=== PATIENT | female | born 1945 | race American Indian/Alaskan Native ===

== ENCOUNTER 2019-03-19 14:56 | Inpatient (IN) | payer BC, MEDICARE ==
[2019-03-19] MEDS ORDERED: ASPIRIN PO ONE (15:02)
[2019-03-19] MEDS: NITROSTAT SL ONE ×3 (15:47→16:04)
[2019-03-19 15:55] LABS: Basophils % (Auto) 0.4 % (0.0-1.8); Eosinophils % (Auto) 0.3 % (0.0-4.3); Hematocrit 43.6 % (30.3-42.9); Hemoglobin 14.2 gm/dl (10.1-14.3); Lymphocytes # (Auto) 1.4 K/mm3 (1.2-5.4); Lymphocytes % (Auto) 13.7 % (13.4-35.0); Mean Corpuscular HGB Conc 33 % (30-34); Mean Corpuscular Volume 95 fl (79-97); Monocytes # (Auto) 0.8 K/mm3 (0.0-0.8); Monocytes % (Auto) 7.6 % (0.0-7.3); Platelet Count 295 K/mm3 (140-440); Red Blood Count 4.59 M/mm3 (3.65-5.03); Red Cell Distribution Width 14.2 % (13.2-15.2)
[2019-03-19] MEDS ORDERED: MORPHINE IV ONE (16:17)
[2019-03-19 16:21] LABS: BUN/Creatinine Ratio 12; Blood Urea Nitrogen 12 mg/dL (7-17); Calcium 10.2 mg/dL (8.4-10.2); Hemolysis Index 38
--- NOTE | 2019-03-19 17:41 | Emergency Department Report ---
ED Chest Pain HPI - General Chief Complaint: Chest Pain Stated Complaint: VOMITTING/CHEST PAIN Time Seen by Provider: 03/19/19 15:26 Source: patient, family Mode of arrival: Wheelchair Limitations: Physical Limitation - History of Present Illness Initial Comments: Mrs. Finch is a 73 yo female with hx of HTN who presents with chest pain and vomiting. Chest pain began 1.5 days ago. CHest pain is located under both breasts and radiates to her back, centrally to epigastric region. 07/05 today. Worsening in severity with vomiting. Take [address] Eliud Callaway NO hx of cardiac dz Takes baby ASA daily. Dose taken this morning [facility] [address], [place] Complaint: chest pain -: Gradual, days(s) (1.5) Onset: during rest Pain Location: left chest, right chest Pain Radiation: back Severity scale (0 -10): 5 Quality: other (difficult to describe) Consistency: constant Improves With: nothing Worsens With: nothing re: nausea, vomting - Related Data Home Medications Medication Instructions Recorded Confirmed Last Taken Aspirin EC [Aspirin Enteric Coated 81 mg PO QDAY 07/19/14 07/20/14 03/19/19 09:00 TAB] Clonidine HCl [Catapres] 0.3 mg PO BID 07/19/14 03/19/19 03/18/19 20:00 Hydralazine HCl [hydrALAZINE] 50 mg PO BID 07/19/14 07/20/14 03/18/19 20:00 Losartan [Cozaar] 100 mg PO DAILY 07/19/14 07/20/14 03/19/19 09:00 amLODIPine [Norvasc] 10 mg PO DAILY 07/19/14 03/19/19 03/19/19 09:00 Allergies Allergy/AdvReac Type Severity Reaction Status Date / Time No Known Allergies Allergy Unverified 07/19/14 14:49 Heart Score - HEART Score History: Highly suspicious EKG: Non-specific Age: > 65 Risk factors: 1-2 risk factors Troponin: < normal limit HEART Score: 6 ED Review of Systems ROS: Stated complaint: VOMITTING/CHEST PAIN Other details as noted in HPI Comment: All other systems reviewed and negative Constitutional: denies: fever, malaise Cardiovascular: chest pain Gastrointestinal: nausea, vomiting ED Past Medical Hx - Past Medical History Previous Medical History?: Yes Hx Hypertension: Yes (FOR 5 YRS, DR. 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 - Medications Home Medications: Home Medications Medication Instructions Recorded Confirmed Last Taken Type Aspirin EC [Aspirin Enteric Coated 81 mg PO QDAY 07/19/14 07/20/14 03/19/19 09:00 History TAB] Clonidine HCl [Catapres] 0.3 mg PO BID 07/19/14 03/19/19 03/18/19 20:00 History Hydralazine HCl [hydrALAZINE] 50 mg PO BID 07/19/14 07/20/14 03/18/19 20:00 History Losartan [Cozaar] 100 mg PO DAILY 07/19/14 07/20/14 03/19/19 09:00 History amLODIPine [Norvasc] 10 mg PO DAILY 07/19/14 03/19/19 03/19/19 09:00 History ED Physical Exam - General Limitations: Physical Limitation General appearance: alert, other (appears uncomfortable) - Head Head exam: Present: atraumatic, normocephalic - Eye Eye exam: Present: normal appearance - ENT ENT exam: Present: mucous membranes moist - Neck Neck exam: Present: normal inspection, full ROM - Respiratory Respiratory exam: Present: normal lung sounds bilaterally. Absent: respiratory distress, wheezes, rales, rhonchi - Cardiovascular Cardiovascular Exam: Present: regular rate, normal rhythm, normal heart sounds, other (equal radial pulses). Absent: systolic murmur, diastolic murmur, rubs, gallop - GI/Abdominal GI/Abdominal exam: Present: soft, normal bowel sounds. Absent: distended, tenderness, guarding, rebound - Extremities Exam Extremities exam: Present: normal inspection - Back Exam Back exam: Present: normal inspection - Neurological Exam Neurological exam: Present: alert, oriented X3 - Psychiatric Psychiatric exam: Present: normal affect, normal mood - Skin Skin exam: Present: warm, dry, intact, normal color. Absent: rash ED Course Vital Signs 03/19/19 03/19/19 03/19/19 15:04 15:47 15:52 Temperature 98.2 F Pulse Rate 110 H 86 100 H Respiratory 20 Rate Blood Pressure 159/75 157/71 138/74 O2 Sat by Pulse 95 Oximetry 03/19/19 03/19/19 16:04 16:38 Temperature Pulse Rate 94 H Respiratory 18 Rate Blood Pressure 129/63 O2 Sat by Pulse Oximetry ED Medical Decision Making - Lab Data Result diagrams: 03/19/19 15:40 03/19/19 15:40 Laboratory Results - last 24 hr 03/19/19 03/19/19 15:40 15:40 WBC 9.9 RBC 4.59 Hgb 14.2 Hct 43.6 H MCV 95 MCH 31 MCHC 33 RDW 14.2 Plt Count 295 Lymph % (Auto) 13.7 [place] % (Auto) 7.6 H Eos % (Auto) 0.3 Baso % (Auto) 0.4 Lymph # 1.4 [place] # 0.8 Eos # 0.0 Baso # 0.0 Seg Neutrophils % 78.0 H Seg Neutrophils # 7.7 Sodium 138 Potassium 3.4 L Chloride 101.8 Carbon Dioxide 19 L Anion Gap 21 BUN 12 Creatinine 1.0 Estimated GFR > 60 BUN/Creatinine Ratio 12 Glucose 152 H Calcium 10.2 Troponin T < 0.010 - EKG Data 03/19/19 17:39 EKG obtained 1515 NSR rate 85 bpm nl axis prolonged QT diffuse T wave flattening, inverted T wave anterolateral leads - Radiology Data Radiology results: report reviewed, image reviewed interpreted by me: AP portable chest: poor inspiratory effort, normal heart size tortuous aorta - Medical Decision Making Mrs. Finch presents with chest pain radiating to back concerning for ACS. Symptoms improved with nitroglycerin. Equal blood pressures in both arms. Equal radial pulses. Admitted to hospitalist service in fair condition. Heart Score 6 Critical care attestation.: If time is entered above; I have spent that time in minutes in the direct care of this critically ill patient, excluding procedure time. ED Disposition Clinical Impression: Acute coronary syndrome Disposition: OP ADMIT IP TO THIS HOSP Is pt being admited?: Yes Does the pt Need Aspirin: No Condition: Stable
--- NOTE | 2019-03-19 18:07 | XRay Report ---
PROCEDURE: XR CHEST 1V AP TECHNIQUE: Chest radiograph single view. HISTORY: Chest Pain COMPARISONS: None . FINDINGS: Heart: Normal. Mediastinum/Vessels: Mild calcification of aorta is seen which is unfolded, likely age-related.. Lungs/Pleural space: Normal. Bony thorax: No acute osseous abnormality. Life support devices: None. IMPRESSION: No acute cardiopulmonary abnormality. This document is electronically signed by Roselia Agee MD., Mar 19 2019 06:05:26 PM ET
--- NOTE | 2019-03-19 20:21 | History and Physical Report ---
History of Present Illness Date of examination: 03/19/19 Date of admission: 03/19/19 16:59 Chief complaint: Chest pain for 1 day History of present illness: 73 yo female with hx of HTN who presents with chest pain and vomiting. Chest pain began 1.5 days ago. CHest pain is located under both breasts and radiates to her back, centrally to epigastric region. 9/10 today. Worsening in severity with vomiting. on antihypertensives.No exacerbating or relieving factors. No sob. Past Medical History Previous Medical History?: Yes HTN Yes (FOR [address] YRS, DR. 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 - Medications Home Medications: Home Medications Medication Instructions Recorded Confirmed Last Taken Type Aspirin EC [Aspirin Enteric Coated 81 mg PO QDAY 07/19/14 07/20/14 03/19/19 09:00 History TAB] Clonidine HCl [Catapres] 0.3 mg PO BID 07/19/14 03/19/19 03/18/19 20:00 History Hydralazine HCl [hydrALAZINE] 50 mg PO BID 07/19/14 07/20/14 03/18/19 20:00 History Losartan [Cozaar] 100 mg PO DAILY 07/19/14 07/20/14 03/19/19 09:00 History amLODIPine [Norvasc] 10 mg PO DAILY 07/19/14 03/19/19 03/19/19 09:00 History Review of Systems ROS: Stated complaint: VOMITTING/CHEST PAIN Other details as noted in HPI Comment: All other systems reviewed and negative Constitutional: denies: fever, malaise Cardiovascular: chest pain Gastrointestinal: nausea, vomiting Medications and Allergies Allergies Allergy/AdvReac Type Severity Reaction Status Date / Time No Known Allergies Allergy Unverified 07/19/14 14:49 Home Medications Medication Instructions Recorded Confirmed Last Taken Type Aspirin EC [Aspirin Enteric Coated 81 mg PO QDAY 07/19/14 03/19/19 03/19/19 09:00 History TAB] Clonidine HCl [Catapres] 0.3 mg PO BID 07/19/14 03/19/19 03/18/19 20:00 History Hydralazine HCl [hydrALAZINE] 50 mg PO BID 07/19/14 03/19/19 03/18/19 20:00 History Losartan [Cozaar] 100 mg PO DAILY 07/19/14 03/19/19 03/19/19 09:00 History amLODIPine [Norvasc] 10 mg PO DAILY 07/19/14 03/19/19 03/19/19 09:00 History Exam - Constitutional Vitals: Temp Pulse Resp BP Pulse Ox 98.4 F 74 18 152/77 100 03/19/19 18:53 03/19/19 18:53 03/19/19 18:53 03/19/19 18:53 03/19/19 18:53 General appearance: Present: no acute distress, well-nourished - EENT Eyes: Present: PERRL ENT: hearing intact, clear oral mucosa - Neck Neck: Present: supple, normal ROM - Respiratory Respiratory effort: normal Respiratory: bilateral: CTA - Cardiovascular Heart Sounds: Present: S1 & S2. Absent: rub, click - Extremities Extremities: pulses symmetrical, No edema Peripheral Pulses: within normal limits - Abdominal General gastrointestinal: Present: soft, non-tender, non-distended, normal bowel sounds Female genitourinary: Present: normal - Integumentary Integumentary: Present: clear, warm, dry - Musculoskeletal Musculoskeletal: gait normal, strength equal bilaterally - Psychiatric Psychiatric: appropriate mood/affect, intact judgment & insight - Neurologic Neurologic: CNII-XII intact, moves all extremities Results - Labs CBC & Chem 7: 03/19/19 15:40 03/19/19 15:40 Labs: Laboratory Last Values WBC 9.9 K/mm3 (4.5-11.0) 03/19/19 15:40 RBC 4.59 M/mm3 (3.65-5.03) 03/19/19 15:40 Hgb 14.2 gm/dl (10.1-14.3) 03/19/19 15:40 Hct 43.6 % (30.3-42.9) H 03/19/19 15:40 MCV 95 fl (79-97) 03/19/19 15:40 MCH 31 pg (28-32) 03/19/19 15:40 MCHC 33 % (30-34) 03/19/19 15:40 RDW 14.2 % (13.2-15.2) 03/19/19 15:40 Plt Count 295 K/mm3 (140-440) 03/19/19 15:40 Lymph % (Auto) 13.7 % (13.4-35.0) 03/19/19 15:40 [place] % (Auto) 7.6 % (0.0-7.3) H 03/19/19 15:40 Eos % (Auto) 0.3 % (0.0-4.3) 03/19/19 15:40 Baso % (Auto) 0.4 % (0.0-1.8) 03/19/19 15:40 Lymph # 1.4 K/mm3 (1.2-5.4) 03/19/19 15:40 [place] # 0.8 K/mm3 (0.0-0.8) 03/19/19 15:40 Eos # 0.0 K/mm3 (0.0-0.4) 03/19/19 15:40 Baso # 0.0 K/mm3 (0.0-0.1) 03/19/19 15:40 Seg Neutrophils % 78.0 % (40.0-70.0) H 03/19/19 15:40 Seg Neutrophils # 7.7 K/mm3 (1.8-7.7) 03/19/19 15:40 Sodium 138 mmol/L (137-145) 03/19/19 15:40 Potassium 3.4 mmol/L (3.6-5.0) L 03/19/19 15:40 Chloride 101.8 mmol/L (98-107) 03/19/19 15:40 Carbon Dioxide 19 mmol/L (22-30) L 03/19/19 15:40 21 mmol/L 03/19/19 15:40 BUN 12 mg/dL (7-17) 03/19/19 15:40 1.0 mg/dL (0.7-1.2) 03/19/19 15:40 Estimated GFR > 60 ml/min 03/19/19 15:40 12 % 03/19/19 15:40 Glucose 152 mg/dL (65-100) H 03/19/19 15:40 Calcium 10.2 mg/dL (8.4-10.2) 03/19/19 15:40 < 0.010 ng/mL (0.00-0.029) 03/19/19 19:17 Short CBC 03/19/19 Range/Units 15:40 WBC 9.9 (4.5-11.0) K/mm3 Hgb 14.2 (10.1-14.3) gm/dl Hct 43.6 H (30.3-42.9) % Plt Count 295 (140-440) K/mm3 BMP 03/19/19 15:40 Sodium 138 Potassium 3.4 L Chloride 101.8 Carbon Dioxide 19 L BUN 12 Creatinine 1.0 Glucose 152 H Calcium 10.2 Cardiac Enzymes 03/19/19 03/19/19 03/19/19 Range/Units 15:40 17:59 19:17 Troponin T < 0.010 < 0.010 < 0.010 (0.00-0.029) ng/mL 03/19/19 03/20/19 Range/Units 20:51 02:28 Troponin T < 0.010 < 0.010 (0.00-0.029) ng/mL Assessment and Plan Advance Directives: Yes (Full code) VTE prophylaxis?: Chemical - Patient Problems (1) Chest pain Current Visit: Yes Status: Acute Qualifiers: Chest pain type: unspecified Qualified Code(s): R07.9 - Chest pain, unspecified Plan to address problem: Chest pain r/o PR protocol Lexiscan in AM Serial Troponins Costochondritis unlikely GERD a possibility (2) Gastritis Current Visit: Yes Status: Acute Qualifiers: Chronicity: acute Plan to address problem: IV Zofran and IV protonix (3) HTN (hypertension) Current Visit: Yes Status: Chronic Qualifiers: Hypertension type: essential hypertension Qualified Code(s): I10 - Essential (primary) hypertension Plan to address problem: Cont antihypertensives (4) Hypokalemia Current Visit: Yes Status: Acute Plan to address problem: Supplemented (5) Hyperglycemia Current Visit: Yes Status: Acute Plan to address problem: New onset Check A1c start on Oral hypoglycemics if necessary (6) DVT prophylaxis Current Visit: Yes Status: Acute Plan to address problem: On Lovenox an GI prophyulaxis
[2019-03-19] MEDS ORDERED: REGLAN IV PRN (20:23)
[2019-03-19] MEDS ORDERED: SODIUM CHLORIDE FLUSH SYRINGE 10 ML IV PRN (20:23)
[2019-03-19] MEDS ORDERED: TYLENOL PO PRN (20:23)
[2019-03-19] MEDS ORDERED: DILAUDID IV PRN (20:23)
[2019-03-19] MEDS ORDERED: ZOFRAN IV PRN (20:23)
[2019-03-19] MEDS ORDERED: PERCOCET 5/325 PO PRN (20:23)
[2019-03-19] MEDS ORDERED: APRESOLINE IV PRN (20:29)
[2019-03-19] MEDS: HALFPRIN EC PO SCH (21:01)
[2019-03-19] MEDS: COZAAR PO SCH (21:47)
[2019-03-19] MEDS: NORVASC PO SCH (21:48)
[2019-03-19] MEDS: CATAPRES PO SCH (22:00)
[2019-03-19] MEDS ORDERED: NON-FORMULARY (Hydralazine Hcl [Apresoline Tab] 50 MG) PO SCH (22:00)
[2019-03-19] MEDS ORDERED: NON-FORMULARY (Clonidine Hcl [Catapres] 0.3 MG) PO SCH (22:00)
[2019-03-19] MEDS: PEPCID PO SCH (22:00)
[2019-03-19] MEDS: APRESOLINE PO SCH (22:00)
[2019-03-19] MEDS: SODIUM CHLORIDE FLUSH SYRINGE 10 ML IV SCH (22:02)
[2019-03-20] MEDS ORDERED: K-DUR PO NR (07:31)
[2019-03-20] MEDS: CATAPRES PO SCH ×2 (09:58→22:55)
[2019-03-20] MEDS: HALFPRIN EC PO SCH (09:58)
[2019-03-20] MEDS: PEPCID PO SCH ×2 (09:58→22:55)
[2019-03-20] MEDS: APRESOLINE PO SCH ×2 (09:59→22:55)
[2019-03-20] MEDS: NORVASC PO SCH (09:59)
[2019-03-20] MEDS: COZAAR PO SCH (10:00)
[2019-03-20] MEDS: PROTONIX IV SCH ×2 (10:01→22:55)
[2019-03-20] MEDS: SODIUM CHLORIDE FLUSH SYRINGE 10 ML IV SCH ×2 (10:01→22:55)
--- NOTE | 2019-03-20 11:37 | Progress Note ---
Assessment and Plan Assessment and plan: --Atypical chest pain; rule out acute coronary syndrome Serial cardiac enzymes aspirin beta blockers and jemma inhibitors nitrates and statins Echocardiogram, stress test, cardiology evaluation if needed --Gastroesophageal reflux disease/acute gastritis IV Protonix and antiemetics --Hypertension; moderate control, continue antihypertensives When necessary medications --DVT prophylaxis; Lovenox Monitor closely and adjust management as needed Follow stress test is negative and patient is stable and may be discharged home in 1-2 days History Interval history: Patient seen and examined medical records reviewed Normal events reported by the nursing staff Patient is admitted with intractable nausea vomiting Symptoms slightly improved Alert awake oriented Vital signs noted Hospitalist Physical - Constitutional Vitals: Temp Pulse Resp BP Pulse Ox 98.6 F 76 18 151/70 99 03/20/19 08:06 03/20/19 10:00 03/20/19 10:00 03/20/19 10:00 03/20/19 10:00 General appearance: Present: no acute distress, well-nourished - EENT Eyes: Present: PERRL, EOM intact - Neck Neck: Present: supple, normal ROM - Respiratory Respiratory effort: normal Respiratory: bilateral: diminished, negative: rales, rhonchi, wheezing - Cardiovascular Rhythm: regular Heart Sounds: Present: S1 & S2 - Extremities Extremities: no ischemia, pulses intact, pulses symmetrical - Abdominal General gastrointestinal: soft, non-tender, non-distended, normal bowel sounds - Integumentary Integumentary: Present: clear, warm - Psychiatric Psychiatric: appropriate mood/affect, cooperative - Neurologic Neurologic: CNII-XII intact, moves all extremities Results - Labs CBC & Chem 7: 03/19/19 15:40 03/19/19 15:40 Labs: Laboratory Last Values WBC 9.9 K/mm3 (4.5-11.0) 03/19/19 15:40 RBC 4.59 M/mm3 (3.65-5.03) 03/19/19 15:40 Hgb 14.2 gm/dl (10.1-14.3) 03/19/19 15:40 Hct 43.6 % (30.3-42.9) H 03/19/19 15:40 MCV 95 fl (79-97) 03/19/19 15:40 MCH 31 pg (28-32) 03/19/19 15:40 MCHC 33 % (30-34) 03/19/19 15:40 RDW 14.2 % (13.2-15.2) 03/19/19 15:40 Plt Count 295 K/mm3 (140-440) 03/19/19 15:40 Lymph % (Auto) 13.7 % (13.4-35.0) 03/19/19 15:40 [place] % (Auto) 7.6 % (0.0-7.3) H 03/19/19 15:40 Eos % (Auto) 0.3 % (0.0-4.3) 03/19/19 15:40 Baso % (Auto) 0.4 % (0.0-1.8) 03/19/19 15:40 Lymph # 1.4 K/mm3 (1.2-5.4) 03/19/19 15:40 [place] # 0.8 K/mm3 (0.0-0.8) 03/19/19 15:40 Eos # 0.0 K/mm3 (0.0-0.4) 03/19/19 15:40 Baso # 0.0 K/mm3 (0.0-0.1) 03/19/19 15:40 Seg Neutrophils % 78.0 % (40.0-70.0) H 03/19/19 15:40 Seg Neutrophils # 7.7 K/mm3 (1.8-7.7) 03/19/19 15:40 Sodium 138 mmol/L (137-145) 03/19/19 15:40 Potassium 3.4 mmol/L (3.6-5.0) L 03/19/19 15:40 Chloride 101.8 mmol/L (98-107) 03/19/19 15:40 Carbon Dioxide 19 mmol/L (22-30) L 03/19/19 15:40 21 mmol/L 03/19/19 15:40 BUN 12 mg/dL (7-17) 03/19/19 15:40 1.0 mg/dL (0.7-1.2) 03/19/19 15:40 Estimated GFR > 60 ml/min 03/19/19 15:40 12 % 03/19/19 15:40 Glucose 152 mg/dL (65-100) H 03/19/19 15:40 Calcium 10.2 mg/dL (8.4-10.2) 03/19/19 15:40 < 0.010 ng/mL (0.00-0.029) 03/20/19 02:28 Active Medications - Current Medications Current Medications: Generic Name Dose Route Start Last Admin Trade Name Freq PRN Reason Stop Dose Admin Acetaminophen 650 mg 03/19/19 20:23 Tylenol PO Q4H PRN Pain MILD(1-3)/Fever >100.5/MIR Amlodipine Besylate 10 mg 03/19/19 21:00 03/20/19 09:59 Norvasc PO 10 mg DAILY MICHELLE Administration Aspirin 81 mg 03/19/19 21:00 03/20/19 09:58 Halfprin Ec PO 81 mg QDAY MICHELLE Administration Clonidine HCl 0.3 mg 03/19/19 22:00 03/20/19 09:58 Catapres PO 0.3 mg BID MICHELLE Administration Enoxaparin Sodium 40 mg 03/20/19 22:00 Lovenox SUB-Q QDAY@2200 MICHELLE Famotidine 20 mg 03/19/19 22:00 03/20/19 09:58 Pepcid PO 20 mg BID MICHELLE Administration Hydralazine HCl 50 mg 03/19/19 22:00 03/20/19 09:59 Apresoline PO 50 mg BID MICHELLE Administration Hydralazine HCl 10 mg 03/19/19 20:29 Apresoline IV Q3H PRN HTN 160/100 Hydromorphone HCl 0.5 mg 03/19/19 20:23 03/19/19 21:44 Dilaudid IV 0.5 mg Q3H PRN Administration Pain , Severe (7-10) Losartan Potassium 100 mg 03/19/19 21:00 03/20/19 10:00 Cozaar PO 100 mg DAILY MICHELLE Administration Metoclopramide HCl 10 mg 03/19/19 20:23 Reglan IV Q6H PRN Nausea And Vomiting Ondansetron HCl 4 mg 03/19/19 20:23 03/19/19 21:08 Zofran IV 4 mg Q3H PRN Administration Nausea And Vomiting Oxycodone/Acetaminophen 1 tab 03/19/19 20:23 Percocet 5/325 PO Q6H PRN Pain, Moderate (4-6) Pantoprazole Sodium 40 mg 03/20/19 10:00 03/20/19 10:01 Protonix IV 40 mg BID MICHELLE Administration Sodium Chloride 10 ml 03/19/19 22:00 03/20/19 10:01 Sodium Chloride Flush Syringe 10 Ml IV 10 ml BID MICHELLE Administration Sodium Chloride 10 ml 03/19/19 20:23 Sodium Chloride Flush Syringe 10 Ml IV PRN PRN LINE FLUSH
[2019-03-20] MEDS ORDERED: LOVENOX SUB-Q SCH (22:00)
[2019-03-21] MEDS: PROTONIX IV SCH (10:37)
[2019-03-21] MEDS: COZAAR PO SCH (10:38)
[2019-03-21] MEDS: APRESOLINE PO SCH (10:39)
[2019-03-21] MEDS: NORVASC PO SCH (10:40)
[2019-03-21] MEDS: HALFPRIN EC PO SCH (10:40)
[2019-03-21] MEDS: SODIUM CHLORIDE FLUSH SYRINGE 10 ML IV SCH (10:41)
[2019-03-21] MEDS: PEPCID PO SCH (10:41)
[2019-03-21] MEDS: CATAPRES PO SCH (10:41)
[2019-03-21 10:43] VITALS: BP 110/70
--- NOTE | 2019-03-21 15:53 | Discharge Summary ---
Providers - Providers Date of Admission: 03/19/19 16:59 Date of discharge: 03/21/19 Attending physician: WASHINGTON THOMAS Primary care physician: MONY HORTON Hospitalization Reason for admission: Chest pain and nausea Condition: Stable Pertinent studies: CXR : normal Hospital course: 73 yo female with hx of HTN was admitted through ER with chest pain and vomiting. Symptomatically managed Serial cardiac enzymes negative.symptoms resolved.Initially was scheduled for stress test,however patient refused as symptoms resolved.Advise to f/u cardiology per sandro for further evaln. Today patient feels better,no new complaints,vital signs stable Physical exam unremarkable.Patient stable at discharge. Advised weight reduction Discharge Diagnosis: --Atypical chest pain; rule out acute coronary syndrome Serial cardiac enzymes aspirin beta blockers and jemma inhibitors nitrates and statins Echocardiogram, stress test, cardiology evaluation if needed --Gastroesophageal reflux disease/acute gastritis IV Protonix and antiemetics --Hypertension; moderate control, continue antihypertensives When necessary medications --Obesity: BMI 32.6 , advise weight reduction as tolerated when medically stable. Stable at discharge. Disposition: DC-01 TO HOME OR SELFCARE Time spent for discharge: 31 min Core Measure Documentation - Palliative Care Palliative Care/ Comfort Measures: Not Applicable - Core Measures Any of the following diagnoses?: none Exam - Constitutional Vitals: Temp Pulse Resp BP Pulse Ox 97.6 F 62 20 110/70 100 03/21/19 04:20 03/21/19 12:00 03/21/19 10:00 03/21/19 10:40 03/21/19 10:00 General appearance: Present: no acute distress, well-nourished - EENT Eyes: Present: PERRL, EOM intact - Neck Neck: Present: supple, enlarged thyroid - Cardiovascular Rhythm: regular Heart Sounds: Present: S1 & S2 - Extremities Extremities: no ischemia, No edema - Abdominal General gastrointestinal: Present: soft, non-tender, non-distended, normal bowel sounds - Integumentary Integumentary: Present: clear, warm - Musculoskeletal Musculoskeletal: strength equal bilaterally - Psychiatric Psychiatric: appropriate mood/affect, cooperative - Neurologic Neurologic: CNII-XII intact, moves all extremities Plan Activity: advance as tolerated, fall precautions Diet: low salt Follow up with: MONY HORTON MD [Primary Care Provider] - 7 Days Prescriptions: hydrALAZINE [Apresoline TAB] 50 mg PO BID #60 tablet
[2019-03-21] MEDS ORDERED: PROTONIX PO SCH (22:00)
== END 2019-03-21 17:26 | disposition home or self-care (01) | DRG 392 ==
LOC: ED 14:56 → 4A 16:59
PROVIDERS: ADMIT Internal Medicine; ATTEND Internal Medicine
DX: K29.00 Acute gastritis without bleeding (principal); I24.9 Acute ischemic heart disease, unspecified; I10 Essential (primary) hypertension; E87.5 Hyperkalemia; R73.9 Hyperglycemia, unspecified; K21.9 Gastro-esophageal reflux disease without esophagitis; Z79.82 Long term (current) use of aspirin; Z79.899 Other long term (current) drug therapy; Z87.442 Personal history of urinary calculi; Z90.49 Acquired absence of other specified parts of digestive tract; Z90.710 Acquired absence of both cervix and uterus
CPT/HCPCS: 36415; 71045; 80048; 82962; 83036; 83735; 84132; 84484; 85025; 87116; 93005; 93010; G0378; C9113; J1170; J1650; J2270; J2405; J2765

== ENCOUNTER 2019-08-05 21:32 | Observation (INO) | payer MEDICARE ==
--- NOTE | 2019-08-05 21:58 | Event Note ---
ED Screening Note Date of service: 08/05/19 Time: 21:54 ED Screening Note: 73 y/o female comes in for epigastric and back pain and has been vomiting and cough 1.5 problems. PMH HTN, This initial assessment/diagnostic orders/clinical plan/treatment(s) is/are subject to change based on patients health status, clinical progression and re- assessment by fellow clinical providers in the ED. Further treatment and workup at subsequent clinical providers discretion. Patient/guardian urged not to elope from the ED as their condition may be serious if not clinically assessed and managed. Initial orders include:
[2019-08-05] MEDS ORDERED: ZOFRAN IV ONE (21:59)
[2019-08-05 22:41] LABS: Basophils # (Auto) 0.1 K/mm3 (0.0-0.1); Basophils % (Auto) 1.1 % (0.0-1.8); Eosinophils % (Auto) 0.4 % (0.0-4.3); Hematocrit 42.9 % (30.3-42.9); Hemoglobin 14.1 gm/dl (10.1-14.3); Lymphocytes # (Auto) 1.7 K/mm3 (1.2-5.4); Lymphocytes % (Auto) 17.5 % (13.4-35.0); Mean Corpuscular HGB Conc 33 % (30-34); Mean Corpuscular Volume 93 fl (79-97); Monocytes # (Auto) 0.7 K/mm3 (0.0-0.8); Monocytes % (Auto) 6.9 % (0.0-7.3); Platelet Count 301 K/mm3 (140-440); Red Blood Count 4.59 M/mm3 (3.65-5.03)
[2019-08-05 22:47] LABS: Bilirubin,Urine SM (Negative); Blood,Urine NEG (Negative); Color,Urine Amber (Yellow); Hyaline Casts,Urine 4 /LPF; Mucus,Urine 3+ /HPF
[2019-08-05] MEDS ORDERED: TYLENOL PO ONE (22:48)
[2019-08-05] MEDS ORDERED: NITROSTAT SL PRN (22:48)
[2019-08-05] MEDS ORDERED: NACL 0.9% 500 ML 500 ML IV ONE (22:48)
[2019-08-05] MEDS ORDERED: CARAFATE PO ONE (22:48)
[2019-08-05] MEDS ORDERED: PEPCID IV ONE (22:48)
--- NOTE | 2019-08-05 22:50 | Emergency Department Report ---
ED Chest Pain HPI - General Chief Complaint: Abdominal Pain Stated Complaint: COUGH/UPPER ABDOMINAL AND BACK PAIN Time Seen by Provider: 08/05/19 21:53 Source: patient, RN notes reviewed, old records reviewed Mode of arrival: Ambulatory Limitations: No Limitations - History of Present Illness Initial Comments: Primary care DrHernandez: Past medical history: Hypertension, question GERD/gastritis Primary care DrHernandez: Dr. Reza HORTON During the history and physical, I am last turner and escorted by nurse Elisabeth May The patient is a 73-year-old female who presents to the ER with nontraumatic subxiphoid pain that radiates to her back, nausea, vomiting, cough, malaise. Symptoms present for the past day and a half. They're intermittent. They do not have exacerbating or relieving factors. Patient reportedly admitted for similar symptoms February 2019, stress test was recommended, which the patient reportedly refused. The patient believes that she may have had an outpatient stress test but she is not sure. She may have had an outpatient endoscopy, but she is not sure. She is taking aspirin on a daily basis. She denies DVT, pulmonary embolism risk factors. MD Complaint: chest pain, other -: Gradual, days(s) Onset: during rest Pain Location: substernal Pain Radiation: back Quality: aching Consistency: intermittent Improves With: nothing Worsens With: nothing re: nausea, vomting Aspirin use within the Past 7 Days: (1) Yes - Related Data On Oral Contraceptives: No Home Medications Medication Instructions Recorded Confirmed Last Taken Aspirin EC [Halfprin EC] 81 mg PO QDAY 07/19/14 03/19/19 03/19/19 09:00 Clonidine HCl [Catapres] 0.3 mg PO BID 07/19/14 03/19/19 03/18/19 20:00 Hydralazine HCl [Apresoline TAB] 50 mg PO BID 07/19/14 03/19/19 03/18/19 20:00 Losartan [Cozaar] 100 mg PO DAILY 07/19/14 03/19/19 03/19/19 09:00 amLODIPine [Norvasc] 10 mg PO DAILY 07/19/14 03/19/19 03/19/19 09:00 Previous Rx's Medication Instructions Recorded Last Taken Type hydrALAZINE [Apresoline TAB] 50 mg PO BID #60 tablet 03/21/19 Unknown Rx Allergies Allergy/AdvReac Type Severity Reaction Status Date / Time No Known Allergies Allergy Unverified 07/19/14 14:49 Heart Score - HEART Score History: Moderately suspicious EKG: Non-specific Age: > 65 Risk factors: 1-2 risk factors Troponin: < normal limit HEART Score: 5 - Critical Actions Critical Actions: 4-6 pts:12-16.6% risk of adverse cardiac event. Should be admitted ED Review of Systems ROS: Stated complaint: COUGH/UPPER ABDOMINAL AND BACK PAIN Other details as noted in HPI Constitutional: malaise, weakness. denies: fever Eyes: denies: eye discharge ENT: congestion Respiratory: cough, shortness of breath Cardiovascular: chest pain Gastrointestinal: abdominal pain, nausea, vomiting Genitourinary: denies: dysuria Musculoskeletal: back pain Skin: denies: lesions Neurological: weakness Psychiatric: anxiety Hematological/Lymphatic: denies: easy bleeding ED Past Medical Hx - Past Medical History Hx Hypertension: Yes (FOR 5 YRS, DR. ELIUD HORTON- PCP) Hx Congestive Heart Failure: No Hx Diabetes: No Hx Arthritis: Yes Hx Kidney Stones: Yes Hx Asthma: No Hx COPD: No - Surgical History Hx Cholecystectomy: Yes Additional Surgical History: Hysterectomy, hip replacement - Social History Smoking Status: Unknown if ever smoked Substance Use Type: Alcohol - Medications Home Medications: Home Medications Medication Instructions Recorded Confirmed Last Taken Type Aspirin EC [Halfprin EC] 81 mg PO QDAY 07/19/14 03/19/19 03/19/19 09:00 History Clonidine HCl [Catapres] 0.3 mg PO BID 07/19/14 03/19/19 03/18/19 20:00 History Hydralazine HCl [Apresoline TAB] 50 mg PO BID 07/19/14 03/19/19 03/18/19 20:00 History Losartan [Cozaar] 100 mg PO DAILY 07/19/14 03/19/19 03/19/19 09:00 History amLODIPine [Norvasc] 10 mg PO DAILY 07/19/14 03/19/19 03/19/19 09:00 History hydrALAZINE [Apresoline TAB] 50 mg PO BID #60 tablet 03/21/19 Unknown Rx ED Physical Exam - General Limitations: No Limitations, Other (chaperoned by nurse Elisabeth May) General appearance: alert, in no apparent distress - Head Head exam: Present: atraumatic, normocephalic - Eye Eye exam: Present: normal appearance, EOMI. Absent: nystagmus - ENT ENT exam: Present: normal exam, normal orophraynx, mucous membranes moist, normal external ear exam - Neck Neck exam: Present: normal inspection, full ROM. Absent: tenderness, meningismus - Respiratory Respiratory exam: Present: normal lung sounds bilaterally. Absent: respiratory distress, chest wall tenderness - Cardiovascular Cardiovascular Exam: Present: regular rate, normal rhythm, normal heart sounds. Absent: bradycardia, tachycardia, irregular rhythm, systolic murmur, diastolic murmur, rubs, gallop - GI/Abdominal GI/Abdominal exam: Present: soft. Absent: distended, tenderness, guarding, rebound, rigid, pulsatile mass - Extremities Exam Extremities exam: Present: normal inspection, full ROM, other (2+ pulses noted in the bilateral upper, lower extremities. Compartments soft. No long bony tenderness. The pelvis is stable.). Absent: pedal edema, joint swelling, calf tenderness - Back Exam Back exam: Present: normal inspection, full ROM. Absent: tenderness, CVA tenderness (R), CVA tenderness (L), paraspinal tenderness, vertebral tenderness - Neurological Exam Neurological exam: Present: alert, other (there is no facial droop. The tongue is midline. Extraocular movements are intact bilaterally. There is 5/5 strength bilateral upper, lower extremities. Sensation intact to light touch bilateral upper, lower extremities.) - Psychiatric Psychiatric exam: Present: anxious - Skin Skin exam: Present: warm, dry, intact, normal color. Absent: rash ED Course Vital Signs 08/05/19 08/05/19 08/05/19 21:38 22:35 23:17 Temperature 98.1 F 97.9 F Pulse Rate 96 H Respiratory 18 24 18 Rate Blood Pressure 130/70 Blood Pressure 126/65 [Left] O2 Sat by Pulse 98 99 Oximetry - Reevaluation(s) Reevaluation #1: 08/05/19 23:03 Differential diagnosis, including but not limited to: GERD, gastritis, hiatal hernia, pancreatitis, pneumonia, pneumothorax, pulmonary embolism, acute coronary syndrome Assessment and plan: 73-year-old female with recurrent episode of subxiphoid pain that radiates to the back, nausea, vomiting, malaise and fatigue. Patient has not had a definitive cardiac risk stratification that she is aware of. She is not tachycardic, she is not hypoxic, she is not tachypneic, however, description of radiation of pain to the back, we will obtain CT scan of the chest to exclude pulmonary embolism and aortic disease. She has equal pulses in the upper, lower extremities. The patient indicates that she is amenable to a stress test if she gets admitted. We will also treat her symptoms. There is no significant abdominal tenderness at this time, there is no active vomiting at this time, therefore, I doubt pancreatitis. She reports a distant history of cholecystectomy. Reevaluation #2: 08/06/19 00:13 CT scan of chest is negative for acute disease. Hospital physician is paged to arrange admission. Reevaluation #3: 08/06/19 00:17 DR Luis Sandoval accepts JOSSUE score - Jossue Score Age > 65: (1) Yes Aspirin use within the Past 7 Days: (1) Yes 3 or more CAD Risk Factors: (0) No 2 or more Angina events in past 24 hrs: (1) Yes Known CAD with more than 50% Stenosis: (0) No Elevated Cardiac Markers: (0) No ST Deviation Greater than 0.5mm: (0) No JOSSUE Score: 3 ED Medical Decision Making - Lab Data Result diagrams: 08/05/19 Unknown 08/05/19 Unknown Vital Signs 08/05/19 21:38 Temperature 98.1 F Pulse Rate 96 H Respiratory 18 Rate Blood Pressure 130/70 O2 Sat by Pulse 98 Oximetry - EKG Data -: EKG Interpreted by Fl EKG shows normal: sinus rhythm Rate: bradycardia - EKG Data When compared to previous EKG there are: previous EKG unavailable 08/05/19 23:32 There is no prior EKG available for comparison at this time. This is a sinus bradycardia, with a left axis deviation, there is a left anterior fascicular block, the QTC is within normal limits, there are diffuse T-wave inversions, there is motion artifact, the EKG is abnormal, the EKG is not consistent with ST elevation myocardial infarction. - Radiology Data Radiology results: pending, image reviewed Portable x-ray of the chest, 1 view, interpreted by myself, is negative for acute disease Critical care attestation.: If time is entered above; I have spent that time in minutes in the direct care of this critically ill patient, excluding procedure time. ED Disposition Clinical Impression: Acute chest pain, Abnormal EKG, Hypomagnesemia Disposition: 09 OP ADMIT IP TO THIS HOSP Is pt being admited?: Yes Does the pt Need Aspirin: Yes Condition: Stable Instructions: Chest Pain (ED), Abdominal Pain (ED) Referrals: MONY HORTON MD [Primary Care Provider] - 3-5 Days
[2019-08-05 23:02] LABS: Ictotest,Urine Positive (Negative)
[2019-08-05 23:04] LABS: Alanine Aminotransferase 11 units/L (7-56); Albumin 4.7 g/dL (3.9-5); BUN/Creatinine Ratio 17; Blood Urea Nitrogen 17 mg/dL (7-17); Calcium 10.3 mg/dL (8.4-10.2); Hemolysis Index 8
--- NOTE | 2019-08-05 23:13 | XRay Report ---
CHEST 1 VIEW INDICATION / CLINICAL INFORMATION: cp n/v. COMPARISON: 03/19/2019 FINDINGS: SUPPORT DEVICES: None. HEART / MEDIASTINUM: Heart size is normal. Atherosclerotic changes of the thoracic aorta appears fawn lar to the comparison study. LUNGS / PLEURA: No significant pulmonary or pleural abnormality. No pneu mothorax. ADDITIONAL FINDINGS: No significant additional findings. IMPRESSION: 1. No acute findings. Signer Name: Khurram Demarco MD Signed: 08/05/2019 11:08 PM Workstation Name: [id number]
--- NOTE | 2019-08-06 00:12 | Cat Scan Report ---
CT angio chest INDICATION / CLINICAL INFORMATION: epigastric pain radiates to back cough mucous n/v. TECHNIQUE: Precontrast bolus timing images were obtained followed by postcontrast axial and reformatted images. 3-plane MIP reconstructions were performed at an independent workstation by the technologist. All CT scans at this location are performed using CT dose reduction for ALARA by means of automated exposure control. COMPARISON: None available. FINDINGS: Pulmonary arterial enhancement is normal. No evidence of pulmonary embolus. No mediastinal adenopathy. No pericardial effusion. No acute pulmonary disease. No pleural effusion. There is mild dependent atelectasis in the right lower lobe. No significant upper abdominal abnormality. Skeletal structures are negative. IMPRESSION: 1. No evidence of pulmonary embolus or acute lung disease. Signer Name: Khurram Demarco MD Signed: 08/06/2019 12:08 AM Workstation Name: [id number]
[2019-08-06] MEDS ORDERED: MAGNESIUM SULFATE 2GM/50ML 2 GM/50 ML BAG IV ONE (00:13)
[2019-08-06] MEDS ORDERED: BABY ASPIRIN PO ONE (00:14)
[2019-08-06] MEDS ORDERED: NITROSTAT SL PRN (00:54)
[2019-08-06] MEDS ORDERED: TYLENOL PO PRN (00:55)
[2019-08-06] MEDS ORDERED: ZOFRAN IV PRN (00:56)
[2019-08-06] MEDS ORDERED: MORPHINE IV PRN (00:56)
[2019-08-06] MEDS ORDERED: HEPARIN ONE (01:10)
[2019-08-06] MEDS: HEPARIN SUB-Q SCH ×3 (01:10→21:44)
--- NOTE | 2019-08-06 04:57 | History and Physical Report ---
CHIEF COMPLAINT: Epigastric pain and retrosternal pain. HISTORY OF PRESENT ILLNESS: The patient is a 73-year-old female who presented with epigastric and retrosternal chest pain going on for a few days. Pain radiates to the back and is not associated with nausea and vomiting. There is also no history of shortness of breath, fever or cough. The patient described pain as intermittent and pain is not affected by movement or breathing. The patient stated that she was admitted for similar symptoms in 02/2019, during which stress test was recommended, but the patient refused to have the stress test done then. PAST MEDICAL HISTORY: Pertinent for hypertension, arthritis, kidney stones. PAST SURGICAL HISTORY: Pertinent for cholecystectomy, hysterectomy and hip replacement. FAMILY HISTORY: Noncontributory. SOCIAL HISTORY: The patient does not smoke cigarettes, drinks alcohol and does not use illicit drugs. MEDICATIONS: The patient is on aspirin 81 mg by mouth daily, Catapres or clonidine 0.3 mg by mouth twice daily, hydralazine 50 mg by mouth twice daily, Cozaar or losartan 100 mg by mouth daily. The patient is also on amlodipine or Norvasc 10 mg by mouth daily. ALLERGIES: There are no known drug allergies. REVIEW OF SYSTEMS: CONSTITUTIONAL: There is no fever, no chills, no diaphoresis. HEENT: There is no headache or sore throat. CARDIOVASCULAR SYSTEM: Chest pain is noted. No orthopnea. RESPIRATORY SYSTEM: There is no shortness of breath or cough. GASTROINTESTINAL SYSTEM: Epigastric abdominal pain noted. No nausea, no vomiting, no diarrhea or constipation. NEUROLOGICAL SYSTEM: There is no numbness, no dizziness, no altered mental status. MUSCULOSKELETAL SYSTEM: There is no joint pain or swelling. DERMATOLOGICAL SYSTEM: There is no skin rash or itching. GENITOURINARY SYSTEM: There is no dysuria, hematuria, or flank pain. Rest of system review is normal. PHYSICAL EXAMINATION: GENERAL: At the time of exam, the patient was found to be alert, oriented x 3 and not in acute distress. VITAL SIGNS: At the initial time of presentation showed temperature of 98.1 degrees Fahrenheit, pulse of 96, respirations 18, blood pressure of 130/70, O2 sat of 98% on room air. HEENT: Show pupils to be equal, round, reactive to light and accommodating. Extraocular muscles are intact. NECK: Supple with no JVD or carotid bruit. CARDIOVASCULAR SYSTEM: Showed normal first and second heart sounds with no gallops or murmurs. RESPIRATORY SYSTEM: Showed good air entry on both sides of the lungs with no abnormal breath sounds. GASTROINTESTINAL SYSTEM: Show abdomen to be full, soft, nontender with no organomegaly or rigidity. NEUROLOGIC: Shows no focal deficit. MUSCULOSKELETAL SYSTEM: Show no joint swelling or tenderness. DERMATOLOGICAL SYSTEM: Showed no skin rash. GENITOURINARY SYSTEM: Showing no costovertebral angle tenderness. PERTINENT LABORATORY AND IMAGING STUDIES: The patient had chest x-ray done that shows no acute findings. The patient had CT angiogram of the chest done that shows no evidence of pulmonary embolism or acute lung disease. Lab results, the patient has CBC done, which came back unremarkable. The patient's chemistry was unremarkable except for slightly elevated calcium level of 10.3 and low magnesium level of 1.6. The patient's urinalysis show cloudy urine with trace urine leukocyte esterase and slightly elevated urine wbc of 7, but high urine epithelial cells of 31 with no bacteria seen. DIAGNOSES: 1. Chest pain. 2. Epigastric abdominal pain. 3. Low magnesium PLAN OF CARE: 1. The patient will be placed on observation on telemetry. 2. The patient will have serial cardiac enzyme involving troponin, total CK, and CK-MB checked every 6 hours x 2 more levels. 3. The patient will remain n.p.o. and will have Lexiscan stress test done this morning to rule out myocardial infarction. 4. The patient will be on aspirin 325 mg by mouth daily and will be on heparin 5000 units subcutaneous q. 12 hours for DVT prophylaxis. 5. The patient will be on morphine 2 mg IV every 3 hours as needed for pain and IV Zofran 4 mg every 8 hours as needed for nausea and vomiting. 6. The patient will be on nitro paste half inch to anterior chest wall q.i.d. and will be on Nitrostat 0.4 mg every 5 minutes as needed for chest pain sublingually. 7. The patient will have magnesium level checked this morning to monitor the magnesium level. 8. The patient will be on oxygen by nasal cannula 2 liters per minute. JOB# [id number] OCN/NTS MTDD
[2019-08-06 07:31] LABS: Creatine Kinase MB 3.6 ng/mL (0.0-4.0)
[2019-08-06] MEDS ORDERED: LEXISCAN IV ONE ×2 (08:08→09:30)
--- NOTE | 2019-08-06 11:07 | Consultation ---
History of Present Illness Consult date: 08/06/19 Requesting physician: ELEAZAR LLANES Consult reason: chest pain History of present illness: The patient claims that for the past 1-1/2 days, she has been experiencing intrascapular pain radiating to her substernal chest area and to the right side of her chest. She describes the chest pain as a pressure sensation. She denies shortness of breath, palpitations or dizziness. She claims that she has also been coughing with production of clear sputum. On the monitor overnight at the hospital, she has demonstrated intermittent periods of sinus bradycardia with frequent episodes of 2:1 AV block as well as brief paroxysms of atrial fibrillation with rapid ventricular rate. She denies any history of arrhythmias. Earlier this morning, she underwent Lexiscan stress test with nuclear imaging which revealed normal myocardial perfusion with stress and rest imaging. Notably, her home medications include clonidine, hydralazine, amlodipine and losartan. Past History Past Medical History: hypertension Past Surgical History: cholecystectomy, total hip replacement (Left) Social history: denies: smoking, alcohol abuse Family history: denies: CAD Medications and Allergies Allergies Allergy/AdvReac Type Severity Reaction Status Date / Time No Known Allergies Allergy Unverified 07/19/14 14:49 Home Medications Medication Instructions Recorded Confirmed Last Taken Type Aspirin EC [Halfprin EC] 81 mg PO QDAY 07/19/14 03/19/19 03/19/19 09:00 History Clonidine HCl [Catapres] 0.3 mg PO BID 07/19/14 03/19/19 03/18/19 20:00 History Hydralazine HCl [Apresoline TAB] 50 mg PO BID 07/19/14 03/19/19 03/18/19 20:00 History Losartan [Cozaar] 100 mg PO DAILY 07/19/14 03/19/19 03/19/19 09:00 History amLODIPine [Norvasc] 10 mg PO DAILY 07/19/14 03/19/19 03/19/19 09:00 History hydrALAZINE [Apresoline TAB] 50 mg PO BID #60 tablet 03/21/19 Unknown Rx Active Meds: Active Medications Acetaminophen (Tylenol) 650 mg PO Q4H PRN PRN Reason: Headache Aspirin (Aspirin) 325 mg PO QDAY MICHELLE Heparin Sodium (Porcine) (Heparin) 5,000 unit SUB-Q Q12HR MICHELLE Last Admin: 08/06/19 01:10 Dose: 5,000 unit Documented by: Morphine Sulfate (Morphine) 2 mg IV Q3H PRN PRN Reason: Pain, Moderate (4-6) Nitroglycerin (Nitro-Bid 2%) 0.5 inch TP QIDNTG [facility]; Protocol Nitroglycerin (Nitrostat) 0.4 mg SL .Q5MIN PRN PRN Reason: Chest Pain Ondansetron HCl (Zofran) 4 mg IV Q8H PRN PRN Reason: Nausea And Vomiting Review of Systems Constitutional: no fever, no chills Ears, nose, mouth and throat: no ear pain, no ear discharge, no sore throat Cardiovascular: chest pain, no palpitations, no lightheadedness, no shortness of breath Respiratory: cough, no hemoptysis, no shortness of breath Gastrointestinal: no abdominal pain, no nausea, no vomiting, no diarrhea, no constipation Genitourinary Female: no dysuria, no urinary frequency Rectal: no pain, no bleeding Musculoskeletal: no neck stiffness, no neck pain, no myalgias Integumentary: no rash, no pruritis Neurological: no weakness, no parathesias, no headaches Endocrine: no cold intolerance, no heat intolerance Hematologic/Lymphatic: no easy bruising, no easy bleeding Allergic/Immunologic: no urticaria, no wheezing Physical Examination Vital Signs Last Vital Signs Temp 98.3 F 08/06/19 08:02 Pulse 49 L 08/06/19 04:26 Resp 18 08/06/19 08:02 BP 142/59 08/06/19 09:17 Pulse Ox 95 08/06/19 04:26 General appearance: no acute distress HEENT: Positive: Normocephaly, Mucus Membranes Moist Neck: Positive: neck supple, trachea midline Cardiac: Positive: Reg Rate and Rhythm, S1/S2 Lungs: Positive: clear to auscultation Neuro: Positive: Grossly Intact Abdomen: Positive: Soft, Active Bowel Sounds. Negative: Tender Skin: Positive: Clear. Negative: Rash Musculoskeletal: Normal Range of Motion Extremities: Present: normal. Absent: edema Results 08/05/19 Unknown 08/05/19 Unknown Cardiac Enzymes 08/05/19 08/06/19 Range/Units Unknown 06:21 AST 17 (5-40) units/L CK-MB (CK-2) 3.6 (0.0-4.0) ng/mL CBC 08/05/19 Range/Units Unknown WBC 9.8 (4.5-11.0) K/mm3 RBC 4.59 (3.65-5.03) M/mm3 Hgb 14.1 (10.1-14.3) gm/dl Hct 42.9 (30.3-42.9) % Plt Count 301 (140-440) K/mm3 Lymph # 1.7 (1.2-5.4) K/mm3 Wetzel # 0.7 (0.0-0.8) K/mm3 Eos # 0.0 (0.0-0.4) K/mm3 Baso # 0.1 (0.0-0.1) K/mm3 Comprehensive Metabolic Panel 08/05/19 Range/Units Unknown Sodium 138 (137-145) mmol/L Potassium 3.6 (3.6-5.0) mmol/L Chloride 102.6 (98-107) mmol/L Carbon Dioxide 18 L (22-30) mmol/L BUN 17 (7-17) mg/dL Creatinine 1.0 (0.7-1.2) mg/dL Glucose 127 H (65-100) mg/dL Calcium 10.3 H (8.4-10.2) mg/dL AST 17 (5-40) units/L ALT 11 (7-56) units/L Alkaline Phosphatase 97 (35-129) units/L Total Protein 8.0 (6.3-8.2) g/dL Albumin 4.7 (3.9-5) g/dL - Imaging and Cardiology EKG: image reviewed EKG interpretations - Telemetry EKG Rhythm: Sinus Bradycardia - EKG Sinus rhythms and dysrhythmias: sinus bradycardia Assessment and Plan With her episodes of intermittent 2:1 AV block and paroxysmal atrial fibrillation with RVR, 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 I will discontinue her clonidine at this time. I may try her on small doses of beta mihai in addition to other antihypertensive medications. Obtain thyroid profile and echocardiogram. She indicated that she would like to go home today. I have strongly advised her to stay overnight in the hospital so that we can observe her rhythm on the monitor while adjusting her medications. She may also benefit from long-term anticoagulation if she continues to experience paroxysms of atrial fibrillation. - Patient Problems (1) Chest pain Current Visit: Yes Status: Acute (2) AV block Current Visit: Yes Status: Acute (3) Paroxysmal atrial fibrillation with RVR Current Visit: Yes Status: Acute (4) Tachycardia-bradycardia syndrome Current Visit: Yes Status: Acute (5) HTN (hypertension) Current Visit: Yes Status: Chronic Qualifiers: Hypertension type: essential hypertension Qualified Code(s): I10 - Essential (primary) hypertension
[2019-08-06 12:52] LABS: Creatine Kinase MB 3.9 ng/mL (0.0-4.0)
[2019-08-06] MEDS: ASPIRIN PO SCH (12:52)
[2019-08-06] MEDS: NORVASC PO SCH (12:53)
[2019-08-06] MEDS: COZAAR PO SCH (12:53)
[2019-08-06] MEDS: LOPRESSOR PO SCH ×2 (12:54→21:43)
[2019-08-06] MEDS: IMDUR PO SCH (13:01)
--- NOTE | 2019-08-06 13:48 | Progress Note ---
Assessment and Plan Assessment and plan: Patient is a 73 yo woman with a history of hypertension who presents with chest pains and back pains. 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 Follow-up on current diagnosis of CP, none now. No overnight events reported to me. Patient denies any chest pain, shortness breath, nausea/vomiting or severe headaches. Imaging, nursing note, chart, labs and old chart reviewed. Discussed with patient. Hospitalist Physical - Physical exam Narrative exam: Gen: WDWN, NAD, Awake, Alert, Orientated HEENT: NCAT, EOMI, PERRL, OP Clear Neck: supple, no adenopathy, no thyromegaly, no JVD CVS/Heart: irregular irregular, normal S1S2, pulses present bilaterally Chest/Lungs: CTA B, Symmetrical chest expansion, good air entry bilaterally GI/Abdomen: soft, NTND, good bowel sounds, no guarding or rebound /Bladder: no suprapubic tenderness, no CVA or paraspinal tenderness Extermity/Skin: no c/c/e, no obvious rash MSK: FROM x 4 Neuro: CN 2-12 grossly intact, no new focal deficits Psych: calm - Constitutional Vitals: Temp Pulse Resp BP Pulse Ox 98.3 F 108 H 18 142/59 95 08/06/19 08:02 08/06/19 13:01 08/06/19 12:00 08/06/19 13:01 08/06/19 04:26 General appearance: Present: no acute distress Results - Labs CBC & Chem 7: 08/05/19 Unknown 08/05/19 Unknown Labs: Laboratory Last Values WBC 9.8 K/mm3 (4.5-11.0) 08/05/19 Unknown RBC 4.59 M/mm3 (3.65-5.03) 08/05/19 Unknown Hgb 14.1 gm/dl (10.1-14.3) 08/05/19 Unknown Hct 42.9 % (30.3-42.9) 08/05/19 Unknown MCV 93 fl (79-97) 08/05/19 Unknown MCH 31 pg (28-32) 08/05/19 Unknown MCHC 33 % (30-34) 08/05/19 Unknown RDW 14.0 % (13.2-15.2) 08/05/19 Unknown Plt Count 301 K/mm3 (140-440) 08/05/19 Unknown Lymph % (Auto) 17.5 % (13.4-35.0) 08/05/19 Unknown [place] % (Auto) 6.9 % (0.0-7.3) 08/05/19 Unknown Eos % (Auto) 0.4 % (0.0-4.3) 08/05/19 Unknown Baso % (Auto) 1.1 % (0.0-1.8) 08/05/19 Unknown Lymph # 1.7 K/mm3 (1.2-5.4) 08/05/19 Unknown [place] # 0.7 K/mm3 (0.0-0.8) 08/05/19 Unknown Eos # 0.0 K/mm3 (0.0-0.4) 08/05/19 Unknown Baso # 0.1 K/mm3 (0.0-0.1) 08/05/19 Unknown Seg Neutrophils % 74.1 % (40.0-70.0) H 08/05/19 Unknown Seg Neutrophils # 7.2 K/mm3 (1.8-7.7) 08/05/19 Unknown Sodium 138 mmol/L (137-145) 08/05/19 Unknown Potassium 3.6 mmol/L (3.6-5.0) 08/05/19 Unknown Chloride 102.6 mmol/L (98-107) 08/05/19 Unknown Carbon Dioxide 18 mmol/L (22-30) L 08/05/19 Unknown Anion Gap 21 mmol/L 08/05/19 Unknown BUN 17 mg/dL (7-17) 08/05/19 Unknown Creatinine 1.0 mg/dL (0.7-1.2) 08/05/19 Unknown Estimated GFR > 60 ml/min 08/05/19 Unknown BUN/Creatinine Ratio 17 % 08/05/19 Unknown Glucose 127 mg/dL (65-100) H 08/05/19 Unknown Calcium 10.3 mg/dL (8.4-10.2) H 08/05/19 Unknown Magnesium 2.30 mg/dL (1.7-2.3) 08/06/19 06:21 Total Bilirubin 0.90 mg/dL (0.1-1.2) 08/05/19 Unknown AST 17 units/L (5-40) 08/05/19 Unknown ALT 11 units/L (7-56) 08/05/19 Unknown Alkaline Phosphatase 97 units/L (35-129) 08/05/19 Unknown Total Creatine Kinase 115 units/L (30-135) 08/06/19 12:02 CK-MB (CK-2) 3.9 ng/mL (0.0-4.0) 08/06/19 12:02 CK-MB (CK-2) Rel Index 3.3 (0-4) 08/06/19 12:02 Troponin T < 0.010 ng/mL (0.00-0.029) 08/06/19 12:02 Total Protein 8.0 g/dL (6.3-8.2) 08/05/19 Unknown Albumin 4.7 g/dL (3.9-5) 08/05/19 Unknown Albumin/Globulin Ratio 1.4 % 08/05/19 Unknown Lipase 8 units/L (13-60) L 08/05/19 Unknown TSH 1.080 mlU/mL (0.270-4.200) 08/06/19 12:02 Free T4 1.61 ng/dL (0.76-1.46) H 08/06/19 12:02 Urine Color Kerline (Yellow) 08/05/19 Unknown Urine Turbidity Cloudy (Clear) 08/05/19 Unknown Urine pH 5.0 (5.0-7.0) 08/05/19 Unknown Ur Specific [place] 1.020 (1.003-1.030) 08/05/19 Unknown Urine Protein 100 mg/dl mg/dL (Negative) 08/05/19 Unknown Urine Glucose (UA) Neg mg/dL (Negative) 08/05/19 Unknown Urine Ketones 20 mg/dL (Negative) 08/05/19 Unknown Urine Blood Neg (Negative) 08/05/19 Unknown Urine Nitrite Neg (Negative) 08/05/19 Unknown Urine Bilirubin Sm (Negative) 08/05/19 Unknown Urine Ictotest Positive (Negative) 08/05/19 Unknown Urine Urobilinogen 2.0 mg/dL (<2.0) 08/05/19 Unknown Ur Leukocyte Esterase Tr (Negative) 08/05/19 Unknown Urine WBC (Auto) 7.0 /HPF (0.0-6.0) H 08/05/19 Unknown Urine RBC (Auto) 7.0 /HPF (0.0-6.0) 08/05/19 Unknown U Epithel Cells (Auto) 31.0 /HPF (0-13.0) H 08/05/19 Unknown Hyaline Casts 4 /LPF 08/05/19 Unknown Urine Mucus 3+ /HPF 08/05/19 Unknown Active Medications - Current Medications Current Medications: Generic Name Dose Route Start Last Admin Trade Name Freq PRN Reason Stop Dose Admin Acetaminophen 650 mg 08/06/19 00:55 Tylenol PO Q4H PRN Headache Amlodipine Besylate 5 mg 08/06/19 12:00 08/06/19 12:53 Norvasc PO 5 mg QDAY MICHELLE Administration Aspirin 325 mg 08/06/19 10:00 08/06/19 12:52 Aspirin PO 325 mg QDAY MICHELLE Administration Heparin Sodium (Porcine) 5,000 unit 08/06/19 01:00 08/06/19 12:56 Heparin SUB-Q 5,000 unit Q12HR MICHELLE Administration Isosorbide Mononitrate 30 mg 08/06/19 13:00 08/06/19 13:01 Imdur PO 30 mg QDAY MICHELLE Administration Losartan Potassium 100 mg 08/06/19 12:00 08/06/19 12:53 Cozaar PO 100 mg QDAY MICHELLE Administration Metoprolol Tartrate 25 mg 08/06/19 12:00 08/06/19 12:54 Lopressor PO 25 mg BID MICHELLE Administration Morphine Sulfate 2 mg 08/06/19 00:56 Morphine IV Q3H PRN Pain, Moderate (4-6) Nitroglycerin 0.4 mg 08/06/19 00:54 Nitrostat SL .Q5MIN PRN Chest Pain Ondansetron HCl 4 mg 08/06/19 00:56 Zofran IV Q8H PRN Nausea And Vomiting
[2019-08-06] MEDS ORDERED: RESTORIL PO PRN (22:04)
--- NOTE | 2019-08-07 01:47 | Treadmill Report ---
THALLIUM REPORT REASON FOR STUDY: Chest pain. IMAGING PROTOCOL: The patient received 10 mCi of technetium-99m Tetrofosmin for rest imaging, and 28 mCi of technetium-99m Tetrofosmin for stress imaging. Imaging for all procedures was completed 30-90 minutes following the initial injection of Technetium 99m Tetrofosmin. SPECT imaging in the 180 degree arc was performed in the right anterior oblique projection. Computerized reconstruction of the images was performed for analysis. NUCLEAR IMAGING RESULTS: Normal left ventricular cavity size with no change from stress to rest. Distribution of radionuclide within the left ventricle revealed normal myocardial photon uptake with stress and rest imaging. Gated SPECT imaging revealed normal global LV systolic function with no significant wall motion abnormalities. The calculated left ventricular ejection fraction is 73%. IMPRESSION: Normal stress and rest myocardial perfusion imaging. Normal global LV systolic function with no significant wall motion abnormalities. EF 73%. No evidence of significant stress-induced ischemia or prior infarction. JOB# [id number] DOLORES/DANTE
[2019-08-07] MEDS: NITRO-BID 2% TP SCH (08:36)
[2019-08-07] MEDS: ASPIRIN PO SCH (10:15)
[2019-08-07] MEDS: COZAAR PO SCH (10:17)
[2019-08-07] MEDS: IMDUR PO SCH (10:18)
[2019-08-07] MEDS: HEPARIN SUB-Q SCH (10:18)
[2019-08-07] MEDS: NORVASC PO SCH (10:19)
[2019-08-07 10:24] VITALS: BP 155/74
--- NOTE | 2019-08-07 10:55 | Progress Note ---
Assessment and Plan Assessment and plan: Patient is a 73 yo woman with a history of hypertension who presents with chest pains and back pains. 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 History Interval history: Patient was seen and examined. Follow-up on current diagnosis of CP, none now. No overnight events reported to me. Patient denies any chest pain, shortness breath, nausea/vomiting or severe headaches. Imaging, nursing note, chart, labs and old chart reviewed. Discussed with patient. Her son and daughter in law at bedside. She is demanding to go home. Her heart drop to 41 bpm overnight. She refuses pacemaker and threatening to leave AMA, counseling done. Hospitalist Physical - Physical exam Narrative exam: Gen: WDWN, NAD, Awake, Alert, Orientated HEENT: NCAT, EOMI, PERRL, OP Clear Neck: supple, no adenopathy, no thyromegaly, no JVD CVS/Heart: irregular irregular, normal S1S2, pulses present bilaterally Chest/Lungs: CTA B, Symmetrical chest expansion, good air entry bilaterally GI/Abdomen: soft, NTND, good bowel sounds, no guarding or rebound /Bladder: no suprapubic tenderness, no CVA or paraspinal tenderness Extermity/Skin: no c/c/e, no obvious rash MSK: FROM x 4 Neuro: CN 2-12 grossly intact, no new focal deficits Psych: calm - Constitutional Vitals: Temp Pulse Resp BP Pulse Ox 98.0 F 66 18 155/74 98 08/07/19 04:32 08/07/19 04:32 08/07/19 04:32 08/07/19 10:19 08/07/19 04:32 General appearance: Present: no acute distress Results - Labs CBC & Chem 7: 08/05/19 Unknown 08/05/19 Unknown Labs: Laboratory Last Values WBC 9.8 K/mm3 (4.5-11.0) 08/05/19 Unknown RBC 4.59 M/mm3 (3.65-5.03) 08/05/19 Unknown Hgb 14.1 gm/dl (10.1-14.3) 08/05/19 Unknown Hct 42.9 % (30.3-42.9) 08/05/19 Unknown MCV 93 fl (79-97) 08/05/19 Unknown MCH 31 pg (28-32) 08/05/19 Unknown MCHC 33 % (30-34) 08/05/19 Unknown RDW 14.0 % (13.2-15.2) 08/05/19 Unknown Plt Count 301 K/mm3 (140-440) 08/05/19 Unknown Lymph % (Auto) 17.5 % (13.4-35.0) 08/05/19 Unknown [place] % (Auto) 6.9 % (0.0-7.3) 08/05/19 Unknown Eos % (Auto) 0.4 % (0.0-4.3) 08/05/19 Unknown Baso % (Auto) 1.1 % (0.0-1.8) 08/05/19 Unknown Lymph # 1.7 K/mm3 (1.2-5.4) 08/05/19 Unknown [place] # 0.7 K/mm3 (0.0-0.8) 08/05/19 Unknown Eos # 0.0 K/mm3 (0.0-0.4) 08/05/19 Unknown Baso # 0.1 K/mm3 (0.0-0.1) 08/05/19 Unknown Seg Neutrophils % 74.1 % (40.0-70.0) H 08/05/19 Unknown Seg Neutrophils # 7.2 K/mm3 (1.8-7.7) 08/05/19 Unknown Sodium 138 mmol/L (137-145) 08/05/19 Unknown Potassium 3.6 mmol/L (3.6-5.0) 08/05/19 Unknown Chloride 102.6 mmol/L (98-107) 08/05/19 Unknown Carbon Dioxide 18 mmol/L (22-30) L 08/05/19 Unknown Anion Gap 21 mmol/L 08/05/19 Unknown BUN 17 mg/dL (7-17) 08/05/19 Unknown Creatinine 1.0 mg/dL (0.7-1.2) 08/05/19 Unknown Estimated GFR > 60 ml/min 08/05/19 Unknown BUN/Creatinine Ratio 17 % 08/05/19 Unknown Glucose 127 mg/dL (65-100) H 08/05/19 Unknown Calcium 10.3 mg/dL (8.4-10.2) H 08/05/19 Unknown Magnesium 2.30 mg/dL (1.7-2.3) 08/06/19 06:21 Total Bilirubin 0.90 mg/dL (0.1-1.2) 08/05/19 Unknown AST 17 units/L (5-40) 08/05/19 Unknown ALT 11 units/L (7-56) 08/05/19 Unknown Alkaline Phosphatase 97 units/L (35-129) 08/05/19 Unknown Total Creatine Kinase 115 units/L (30-135) 08/06/19 12:02 CK-MB (CK-2) 3.9 ng/mL (0.0-4.0) 08/06/19 12:02 CK-MB (CK-2) Rel Index 3.3 (0-4) 08/06/19 12:02 Troponin T < 0.010 ng/mL (0.00-0.029) 08/06/19 12:02 Total Protein 8.0 g/dL (6.3-8.2) 08/05/19 Unknown Albumin 4.7 g/dL (3.9-5) 08/05/19 Unknown Albumin/Globulin Ratio 1.4 % 08/05/19 Unknown Lipase 8 units/L (13-60) L 08/05/19 Unknown TSH 1.080 mlU/mL (0.270-4.200) 08/06/19 12:02 Free T4 1.61 ng/dL (0.76-1.46) H 08/06/19 12:02 Urine Color Kerline (Yellow) 08/05/19 Unknown Urine Turbidity Cloudy (Clear) 08/05/19 Unknown Urine pH 5.0 (5.0-7.0) 08/05/19 Unknown Ur Specific [place] 1.020 (1.003-1.030) 08/05/19 Unknown Urine Protein 100 mg/dl mg/dL (Negative) 08/05/19 Unknown Urine Glucose (UA) Neg mg/dL (Negative) 08/05/19 Unknown Urine Ketones 20 mg/dL (Negative) 08/05/19 Unknown Urine Blood Neg (Negative) 08/05/19 Unknown Urine Nitrite Neg (Negative) 08/05/19 Unknown Urine Bilirubin Sm (Negative) 08/05/19 Unknown Urine Ictotest Positive (Negative) 08/05/19 Unknown Urine Urobilinogen 2.0 mg/dL (<2.0) 08/05/19 Unknown Ur Leukocyte Esterase Tr (Negative) 08/05/19 Unknown Urine WBC (Auto) 7.0 /HPF (0.0-6.0) H 08/05/19 Unknown Urine RBC (Auto) 7.0 /HPF (0.0-6.0) 08/05/19 Unknown U Epithel Cells (Auto) 31.0 /HPF (0-13.0) H 08/05/19 Unknown Hyaline Casts 4 /LPF 08/05/19 Unknown Urine Mucus 3+ /HPF 08/05/19 Unknown Active Medications - Current Medications Current Medications: Generic Name Dose Route Start Last Admin Trade Name Freq PRN Reason Stop Dose Admin Acetaminophen 650 mg 08/06/19 00:55 Tylenol PO Q4H PRN Headache Amlodipine Besylate 5 mg 08/06/19 12:00 08/07/19 10:19 Norvasc PO 5 mg QDAY MICHELLE Administration Aspirin 325 mg 08/06/19 10:00 08/07/19 10:15 Aspirin PO 325 mg QDAY MICHELLE Administration Heparin Sodium (Porcine) 5,000 unit 08/06/19 01:00 08/07/19 10:18 Heparin SUB-Q 5,000 unit Q12HR MICHELLE Administration Isosorbide Mononitrate 30 mg 08/06/19 13:00 08/07/19 10:18 Imdur PO 30 mg QDAY MICHELLE Administration Losartan Potassium 100 mg 08/06/19 12:00 08/07/19 10:17 Cozaar PO 100 mg QDAY MICHELLE Administration Morphine Sulfate 2 mg 08/06/19 00:56 Morphine IV Q3H PRN Pain, Moderate (4-6) Nitroglycerin 0.4 mg 08/06/19 00:54 Nitrostat SL .Q5MIN PRN Chest Pain Ondansetron HCl 4 mg 08/06/19 00:56 Zofran IV Q8H PRN Nausea And Vomiting Temazepam 15 mg 08/06/19 22:04 08/07/19 01:01 Restoril PO 15 mg QHS PRN Administration Sleep
--- NOTE | 2019-08-07 12:38 | Progress Note ---
Assessment and Plan Her stress test was negative for ischemia yesterday. I have explained to her that there is no clear indication for permanent pacemaker implantation at this time, although we cannot rule it out in the near future. She may will be discharged home on current medications without beta mihai therapy. She will follow-up in my office in one week. A 48hr holter will be placed as an outpatient. I have instructed to take an aspirin daily. - Patient Problems (1) Chest pain Current Visit: Yes Status: Acute (2) AV block Current Visit: Yes Status: Acute (3) Paroxysmal atrial fibrillation with RVR Current Visit: Yes Status: Acute (4) Tachycardia-bradycardia syndrome Current Visit: Yes Status: Acute (5) HTN (hypertension) Current Visit: Yes Status: Chronic Qualifiers: Hypertension type: essential hypertension Qualified Code(s): I10 - Essential (primary) hypertension Subjective Date of service: 08/07/19 Principal diagnosis: CP, 2:1 AV block, PAF with RVR, Tachy-[place], HTN Interval history: She feels fine without any recurrent chest pain. She remains desperate to go home today as she had indicated yesterday. She mentioned that nobody is going to put any pacemaker or other device in her. Tonight, she was in sinus rhythm without any significant bradyarrhythmia or tachyarrhythmia. Apparently, metoprolol was held. Objective Vital Signs Temp Pulse Resp BP Pulse Ox 08/07/19 10:19 155/74 08/07/19 10:18 155/74 08/07/19 10:17 155/74 08/07/19 04:32 98.0 F 66 18 151/73 98 08/07/19 01:00 54 L 08/06/19 23:18 97.6 F 54 L 18 135/66 100 08/06/19 22:00 99 08/06/19 21:43 55 L 125/62 08/06/19 20:08 97.8 F 55 L 20 125/62 98 08/06/19 18:11 98.7 F 18 104/51 08/06/19 13:01 108 H 142/59 08/06/19 12:54 108 H 142/59 08/06/19 12:53 108 H 142/59 - Physical Examination General: No Apparent Distress HEENT: Positive: EOMI, Normocephaly, Mucus Membranes Moist Neck: Positive: neck supple, trachea midline Cardiac: Positive: Reg Rate and Rhythm, S1/S2 Lungs: Positive: clear to auscultation Neuro: Positive: Grossly Intact Abdomen: Positive: Soft, Active Bowel Sounds. Negative: Tender Skin: Positive: Clear. Negative: Rash Musculoskeletal: Normal Range of Motion Extremities: Present: normal. Absent: edema - Labs and Meds Cardiac Enzymes 08/06/19 Range/Units 12:02 CK-MB (CK-2) 3.9 (0.0-4.0) ng/mL - Imaging and Cardiology EKG: image reviewed - Telemetry EKG Rhythm: Sinus Rhythm - EKG Sinus rhythms and dysrhythmias: sinus bradycardia
--- NOTE | 2019-08-07 12:45 | Discharge Summary ---
Providers - Providers Date of Admission: 08/06/19 00:18 Date of discharge: 08/07/19 Attending physician: JOSE BERRIOS 08/06/19 06:25 Consult to Physician [CONS] Routine Comment: Consulting Provider: ARSALAN SHEA Physician Instructions: Reason For Exam: chest pain Primary care physician: MONY HORTON Hospitalization Condition: Stable Hospital course: Patient is a 73 yo woman with a history of hypertension who presents with chest pains and back pains. 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 Chest pains: stress test unremarkable New onset AFib with RVR: ECHO, no A/C, just once, needs holter monitor to be place in Dr. Aguilar office, full strenght ASA for now per Dr. 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 Disposition: DC-01 TO HOME OR SELFCARE Time spent for discharge: 35 minutes Core Measure Documentation - Palliative Care Palliative Care/ Comfort Measures: Not Applicable - Core Measures Any of the following diagnoses?: none - VTE Discharge Requirements Deep Vein Thrombosis/Pulmonary Embolism Present on Admission: No Has pt received <5 days of overlap therapy or INR<2.0: No Anticoagulant overlap therapy prescribed at discharge: No Contraindication No Overlap Therapy order at DC: Not Indicated Exam - Physical Exam Narrative exam: Gen: WDWN, NAD, Awake, Alert, Orientated HEENT: NCAT, EOMI, PERRL, OP Clear Neck: supple, no adenopathy, no thyromegaly, no JVD CVS/Heart: rrr, normal S1S2, pulses present bilaterally Chest/Lungs: CTA B, Symmetrical chest expansion, good air entry bilaterally GI/Abdomen: soft, NTND, good bowel sounds, no guarding or rebound /Bladder: no suprapubic tenderness, no CVA or paraspinal tenderness Extermity/Skin: no c/c/e, no obvious rash MSK: FROM x 4 Neuro: CN 2-12 grossly intact, no new focal deficits Psych: calm - Constitutional Vitals: Temp Pulse Resp BP Pulse Ox 98.0 F 66 18 155/74 98 10/13/19 04:32 08/07/19 04:32 08/07/19 04:32 08/07/19 10:19 08/07/19 04:32 Plan Activity: no driving until cleared by PCP, other (no strenous activity) Diet: low salt Additional Instructions: No CLONIDINE aka Catapress Follow up with: MONY HORTON MD [Primary Care Provider] - 3-5 Days AYUSH AGUILAR MD [Staff Physician] - 7 Days Prescriptions: Aspirin 325 mg PO QDAY #30 tablet
== END 2019-08-07 15:26 | disposition home or self-care (01) ==
LOC: ED 21:32 → 4A 08-06 00:18
PROVIDERS: ADMIT Internal Medicine; ATTEND Internal Medicine
DX: R07.89 Other chest pain (principal); R10.13 Epigastric pain; E83.42 Hypomagnesemia; I10 Essential (primary) hypertension; M19.90 Unspecified osteoarthritis, unspecified site
CPT/HCPCS: 36415; 71045; 71275; 78452; 80053; 81001; 82550; 82553; 83690; 83735; 84439; 84443; 84484; 85025; 93005; 93010; 93017; 93306; 96365; 96372; 96375; 99284; A9502; G0378; J1644; J2405; J2785; J3475; J7040; Q9967

== ENCOUNTER 2019-08-11 14:04 | Inpatient (IN) | payer MEDICARE ==
--- NOTE | 2019-08-11 14:34 | Emergency Department Report ---
ED General Adult HPI - General Chief complaint: Weakness Stated complaint: GENERAL WEAKNESS Time Seen by Provider: 08/11/19 14:31 Source: patient Mode of arrival: Stretcher Limitations: No Limitations - History of Present Illness Initial comments: 73-year-old female with a history of atrial fibrillation with RVR, arthritis, hypertension, and breast cancer, not currently on chemotherapy or radiation presents with a complaint of nausea. Patient has been having dry heaving per the family. Patient denies any chest pain at current time. Them he states the patient has had weakness that has worsened since her recent discharge from the hospital on August 07. Patient was evaluated at that time with a cardiac workup which included a negative stress test. Patient also states that she did not want a pacemaker. Patient has had no focal weakness or slurred speech. Patient's had no syncopal episodes. Family members state that they were trying to take patient to her follow-up appointment and secondary to her generalized weakness and nausea brought her to the emergency department rather than taking her to her cardiology appointment. Patient states that she has mild diffuse abdominal pain. Patient denies diarrhea. Patient denies any dysuria as well. On recent admission patient also had a CT angio of the chest which was negative for any acute process. - Related Data Home Medications Medication Instructions Recorded Confirmed Last Taken Hydralazine HCl [Apresoline TAB] 50 mg PO BID 07/19/14 03/19/19 03/18/19 20:00 Losartan [Cozaar] 100 mg PO DAILY 07/19/14 03/19/19 03/19/19 09:00 amLODIPine [Norvasc] 10 mg PO DAILY 07/19/14 03/19/19 03/19/19 09:00 Previous Rx's Medication Instructions Recorded Last Taken Type hydrALAZINE [Apresoline TAB] 50 mg PO BID #60 tablet 03/21/19 Unknown Rx Aspirin 325 mg PO QDAY #30 tablet 08/07/19 Unknown Rx Allergies Allergy/AdvReac Type Severity Reaction Status Date / Time No Known Allergies Allergy Unverified 07/19/14 14:49 ED Review of Systems ROS: Stated complaint: GENERAL WEAKNESS Other details as noted in HPI Constitutional: denies: chills, fever Eyes: denies: eye pain, eye discharge, vision change ENT: denies: ear pain, throat pain Respiratory: denies: cough, shortness of breath, wheezing Cardiovascular: denies: chest pain, palpitations Endocrine: no symptoms reported Gastrointestinal: nausea Genitourinary: denies: urgency, dysuria, discharge Musculoskeletal: denies: back pain, joint swelling, arthralgia Skin: denies: rash, lesions Neurological: weakness Psychiatric: denies: anxiety, depression Hematological/Lymphatic: denies: easy bleeding, easy bruising ED Past Medical Hx - Past Medical History Previous Medical History?: Yes Hx Hypertension: Yes (FOR 5 YRS, DR. ELIUD HORTON- PCP) Hx Congestive Heart Failure: No Hx Diabetes: No Hx Arthritis: Yes Hx Kidney Stones: Yes Hx Asthma: No Hx COPD: No - Surgical History Past Surgical History?: Yes Hx Cholecystectomy: Yes Additional Surgical History: Hysterectomy, hip replacement - Social History Smoking Status: Never Smoker Substance Use Type: None - Medications Home Medications: Home Medications Medication Instructions Recorded Confirmed Last Taken Type Hydralazine HCl [Apresoline TAB] 50 mg PO BID 07/19/14 03/19/19 03/18/19 20:00 History Losartan [Cozaar] 100 mg PO DAILY 07/19/14 03/19/19 03/19/19 09:00 History amLODIPine [Norvasc] 10 mg PO DAILY 07/19/14 03/19/19 03/19/19 09:00 History hydrALAZINE [Apresoline TAB] 50 mg PO BID #60 tablet 03/21/19 Unknown Rx Aspirin 325 mg PO QDAY #30 tablet 08/07/19 Unknown Rx ED Physical Exam - General Limitations: No Limitations General appearance: alert, other (dry heaving, mildly uncomfortable) - Head Head exam: Present: atraumatic, normocephalic - Eye Eye exam: Present: normal appearance - ENT ENT exam: Present: mucous membranes moist, other - Neck Neck exam: Present: normal inspection - Respiratory Respiratory exam: Present: normal lung sounds bilaterally. Absent: respiratory distress - Cardiovascular Cardiovascular Exam: Present: regular rate, normal rhythm. Absent: systolic murmur, diastolic murmur, rubs, gallop - GI/Abdominal GI/Abdominal exam: Present: soft, tenderness (mild diffuse tenderness), normal bowel sounds. Absent: distended, guarding, rebound - Extremities Exam Extremities exam: Present: normal inspection - Back Exam Back exam: Present: normal inspection - Neurological Exam Neurological exam: Present: alert, oriented X3 - Psychiatric Psychiatric exam: Present: normal affect, normal mood - Skin Skin exam: Present: warm, dry, intact, normal color. Absent: rash ED Course Vital Signs 08/11/19 08/11/19 14:17 14:25 Temperature 97.6 F Pulse Rate 96 H Respiratory 22 16 Rate Blood Pressure 110/78 O2 Sat by Pulse 99 Oximetry ED Medical Decision Making - Lab Data Result diagrams: 08/11/19 15:13 08/11/19 15:13 - EKG Data EKG shows normal: sinus rhythm Rate: normal - EKG Data Interpretation: other (LVH;) - Medical Decision Making Patient was given IV fluid bolus of 500 mL initially upon presentation. Patient was also given maintenance fluids while here in emergency department. Patient was noted to have an elevated white count of 18.7 but has yet to produce a urine specimen. When compared to her prior lab values from August 05 patient's creatinine is elevated to 2.[address] shows no acute process. In light of the patient's elevated creatinine along with her vomiting and generalized weakness we'll go ahead and admit the patient to the hospitalist ser for continued management and treatment. - Differential Diagnosis pneumonia; pancreatitis; dehydration; cholelithiasis; NSTEMI Critical care attestation.: If time is entered above; I have spent that time in minutes in the direct care of this critically ill patient, excluding procedure time. ED Disposition Clinical Impression: Acute renal failure, Vomiting, Kidney stone HTN (hypertension) Qualifiers: Hypertension type: essential hypertension Qualified Code(s): I10 - Essential (primary) hypertension Disposition: OP ADMIT IP TO THIS HOSP Is pt being admited?: Yes Condition: Stable Instructions: Hypertension (ED) Time of Disposition: 16:39 Print Language: [place]
[2019-08-11] MEDS ORDERED: ZOFRAN IV ONE (14:42)
[2019-08-11] MEDS ORDERED: NACL 0.9% 500 ML 500 ML IV ONE (14:46)
[2019-08-11] MEDS ORDERED: ATIVAN IV STA (15:05)
[2019-08-11] MEDS ORDERED: ATIVAN ONE (15:10)
[2019-08-11 15:29] LABS: Hematocrit 46.2 % (30.3-42.9); Hemoglobin 15.5 gm/dl (10.1-14.3); Mean Corpuscular HGB Conc 34 % (30-34); Mean Corpuscular Volume 93 fl (79-97); Platelet Count 276 K/mm3 (140-440); Red Blood Count 4.95 M/mm3 (3.65-5.03); Red Cell Distribution Width 14.5 % (13.2-15.2)
[2019-08-11 15:48] LABS: Albumin 3.7 g/dL (3.9-5); Bilirubin,Direct 0.5 mg/dL (0-0.2); Calcium 9.8 mg/dL (8.4-10.2)
--- NOTE | 2019-08-11 16:05 | XRay Report ---
CHEST 1 VIEW INDICATION: chestpain. COMPARISON: 08/05/2019 FINDINGS: Support devices: None. Heart: Within normal limits. The aorta is mildly ectatic with calcifications. Lungs/Pleura: No acute air space or interstitial disease. Additional findings: None. IMPRESSION: No acute findings. Signer Name: Yosi Ken Jr, MD Signed: 08/11/2019 4:01 PM Workstation Name: [id number]
--- NOTE | 2019-08-11 16:05 | Cat Scan Report ---
CT ABDOMEN AND PELVIS WITHOUT CONTRAST HISTORY: MAIN: GENERALIZED abdominal Pain COMPARISON: None. TECHNIQUE: Axial CT images were obtained through the abdomen and pelvis without IV contrast. Sagittal and coronal reformatted images. All CT scans at this location are performed using CT dose reduction for ALARA by means of automated exposure control. FINDINGS: CT ABDOMEN: Lung Bases: Clear. Liver: No significant abnormality. Biliary: Cholecystectomy. No biliary dilatation. Spleen: No significant abnormality. Unenlarged. Pancreas: No significant abnormality. Adrenals: No significant abnormality. Kidneys: 3 mm calyceal stone is noted at the inferior pole of the left kidney. The kidneys and collec ting systems are unremarkable otherwise. Lymphatics: No lymphadenopathy. Vasculature: Mild aortic calcifications. No aneurysm. Bowel/Peritoneum: No significant abnormality. No free air. No free fluid. Multiple appendix. CT PELVIS: : Hysterectomy. The bladder is grossly normal although poorly visualized secondary to a left hip re placement. No pelvic mass, fluid or inflammatory changes. Osseous Structures: Mild osteopenia. No acute bony findings. Additional Findings: None IMPRESSION: No acute process is identified. 3 mm left renal stone. Cholecystectomy and hysterectomy. Mild osteopenia. Signer Name: Yosi Ken Jr, MD Signed: 08/11/2019 4:00 PM Workstation Name: [id number]
[2019-08-11] MEDS ORDERED: NACL 0.9% 1000 ML 1,000 ML IV ONE (16:26)
[2019-08-11] MEDS ORDERED: ROCEPHIN/NS 1 GM/50 ML 1 GM/50 ML BAG IV ONE (16:29)
--- NOTE | 2019-08-11 16:31 | History and Physical Report ---
History of Present Illness Chief complaint: Im sick, I feel weak, and I have not gotten any better History of present illness: 73 YO Female with HTN, OA, Nephrolithiasis, Obesity, Atrial Fib with RVR not taking anticoagulation, Debility, Sick Sinus Syndrome presents to ED for evaluation. Pt states that she has experienced progressive weakness, multiple episodes of nausea, and decreased oral intake over the past 4 days, since being discharged from [facility], with progressively worsening symptoms over the same time frame. Pt transported to [facility] via private vehicle. Pt seen and evaluated in ED and found to have UTI complicated by SIRS, Acidosis, and GRICEL. Pt also has SSS but refuses pacemaker placement during prior hospitalization. Pt amditted to [facility] and placed on remote telemetry. Cardiology and Nephrology services consulted in ED. Pt denies fever, chills, CP, Trauma, Falls, Productive cough, Skin Rash, or recent ill contacts. Pt family at bedside during exam and interview. Advanced care planning conducted. Pt family acknowledge understanding and agreement with care plan. Past History Past Medical History: other (see hpi) Past Surgical History: cholecystectomy, hysterectomy Social history: single. denies: smoking, alcohol abuse, prescription drug abuse Family history: hypertension Medications and Allergies Allergies Allergy/AdvReac Type Severity Reaction Status Date / Time No Known Allergies Allergy Unverified 07/19/14 14:49 Home Medications Medication Instructions Recorded Confirmed Last Taken Type Losartan [Cozaar] 100 mg PO DAILY 07/19/14 08/11/19 03/19/19 09:00 History amLODIPine [Norvasc] 10 mg PO DAILY 07/19/14 08/11/19 03/19/19 09:00 History hydrALAZINE [Apresoline TAB] 50 mg PO BID #60 tablet 03/21/19 08/11/19 Unknown Rx Aspirin 325 mg PO QDAY #30 tablet 08/07/19 08/11/19 Unknown Rx Active Meds: Active Medications Sodium Chloride (Nacl 0.9% 1000 Ml) 1,000 mls @ 125 mls/hr IV ONCE ONE Stop: 08/12/19 00:25 Ceftriaxone Sodium (Rocephin/Ns 1 Gm/50 Ml) 1 gm in 50 mls @ 100 mls/hr IV ONCE ONE; Protocol Stop: 08/11/19 16:58 Review of Systems Constitutional: fatigue, weakness, no weight loss, no weight gain, no fever, no chills Ears, nose, mouth and throat: no ear pain, no ear discharge, no tinnitis, no decreased hearing Cardiovascular: no chest pain, no orthopnea, no palpitations, no rapid/irregular heart beat, no edema Respiratory: no cough, no cough with sputum, no excessive sputum, no hemoptysis Gastrointestinal: nausea, vomiting, no abdominal pain, no change in bowel habits, no BRBPR, no melena, no loss of appetite Genitourinary Female: no pelvic pain, no flank pain, no menorrhagia, no dysuria Rectal: no pain, no incontinence, no bleeding Musculoskeletal: no neck stiffness, no neck pain, no shooting arm pain, no arm numbness/tingling, no shooting leg pain, no leg numbness/tingling, no redness of joints Integumentary: no rash, no pruritis, no redness, no sores, no wounds Neurological: no transient paralysis, no paralysis, no weakness, no parathesias, no tingling, no seizures, no syncope Psychiatric: no anxiety, no memory loss, no sleep disturbances, no hypersomnia, no change in libido Endocrine: no cold intolerance, no heat intolerance, no polyphagia, no polydipsia, no polyuria, no excessive sweating, no flushing Hematologic/Lymphatic: no easy bruising, no easy bleeding, no lymphadenopathy, no lymphedema Allergic/Immunologic: no urticaria, no allergic rhinitis, no angioedema Exam - Constitutional Vitals: Temp Pulse Resp BP Pulse Ox 97.6 F 96 H 16 110/78 99 08/11/19 14:17 08/11/19 14:17 08/11/19 14:25 08/11/19 14:17 08/11/19 14:17 General appearance: Present: mild distress, obese - EENT Eyes: Present: PERRL ENT: hearing intact, clear oral mucosa - Neck Neck: Present: supple, normal ROM - Respiratory Respiratory effort: normal Respiratory: bilateral: CTA - Cardiovascular Rhythm: irregularly irregular Heart Sounds: Present: S1 & S2. Absent: rub, click - Extremities Extremities: pulses symmetrical, No edema Peripheral Pulses: within normal limits - Abdominal General gastrointestinal: Present: soft, non-tender, non-distended, normal bowel sounds Female genitourinary: Present: normal - Integumentary Integumentary: Present: clear, warm, dry - Musculoskeletal Musculoskeletal: gait normal, strength equal bilaterally - Psychiatric Psychiatric: appropriate mood/affect, intact judgment & insight - Neurologic Neurologic: CNII-XII intact, moves all extremities Results - Labs CBC & Chem 7: 08/11/19 15:13 08/11/19 15:13 Labs: Abnormal lab results 08/11/19 08/11/19 Range/Units 15:13 15:13 WBC 18.7 H (4.5-11.0) K/mm3 Hgb 15.5 H (10.1-14.3) gm/dl Hct 46.2 H (30.3-42.9) % Potassium 3.3 L (3.6-5.0) mmol/L Carbon Dioxide 17 L (22-30) mmol/L BUN 51 H (7-17) mg/dL Creatinine 2.5 H (0.7-1.2) mg/dL Glucose 155 H (65-100) mg/dL Total Bilirubin 1.50 H (0.1-1.2) mg/dL Direct Bilirubin 0.5 H (0-0.2) mg/dL Total Creatine Kinase 138 H (30-135) units/L Albumin 3.7 L (3.9-5) g/dL Assessment and Plan - Patient Problems (1) UTI (urinary tract infection) Current Visit: Yes Status: Acute Qualifiers: Encounter type: initial encounter Plan to address problem: IV antibiotic therapy, urinalysis, CBC, CMP (2) SIRS (systemic inflammatory response syndrome) Current Visit: Yes Status: Acute Plan to address problem: IV antibiotic therapy, CBC, CMP, Urinalysis, Chest x ray, IVF resuscitation therapy. (3) Acidosis Current Visit: Yes Status: Acute Plan to address problem: IV bicarbonate therapy. (4) GRICEL (acute kidney injury) Current Visit: Yes Status: Acute Plan to address problem: IVF resuscitation therapy, Nephrology consulted, monitor uop q shift, urine electrolytes, renal ultrasound, avoid nephrotoxic agents (5) Paroxysmal atrial fibrillation with RVR Current Visit: No Status: Acute Plan to address problem: rate control, continue full dose aspirin, telemetry (6) Tachycardia-bradycardia syndrome Current Visit: No Status: Acute Plan to address problem: Cardiology consulted in ED, telemetry, (7) Advance care planning Current Visit: Yes Status: Acute Plan to address problem: +30 minutes: discussed code status, end of life care, dementia progression, inpatient care plan. (8) DVT prophylaxis Current Visit: Yes Status: Acute Plan to address problem: SCD to BLE while in bed,
[2019-08-11] MEDS ORDERED: PROVENTIL IH PRN (16:34)
[2019-08-11] MEDS ORDERED: SODIUM CHLORIDE FLUSH SYRINGE 10 ML IV PRN (16:34)
[2019-08-11] MEDS ORDERED: K-DUR PO ONE (18:46)
[2019-08-11] MEDS: TYLENOL PO PRN (20:02)
[2019-08-11] MEDS: ZOFRAN IV PRN (20:03)
--- NOTE | 2019-08-11 21:00 | Consultation ---
History of Present Illness - Reason for Consult Consult date: 08/11/19 acute renal failure, hypokalemia - History of Present Illness The pt is a 73 YO female with history significant for Hypertension and Paroxysmal A.fib who presented to [facility] ED today with c/o weakness, nausea and vomiting for the past week. Patient was recently treated at this facility for A.fib with RVR and was discharged on 08/07/2019. Her appetite has decreased with poor PO intake. She also reports having few episodes of loose stools. She denies any chest pain, sob, abd pain, dysuria, hematuria, fever, chills, laquita phoresis, dizziness or syncope. Labs signficant for creat 2.5 and K 3.3. Nephrology was consulted for further evaluation. Past History Past Medical History: atrial fib, hypertension Past Surgical History: cholecystectomy, hysterectomy Social history: single. denies: smoking, alcohol abuse, prescription drug abuse Family history: hypertension Medications and Allergies Allergies Allergy/AdvReac Type Severity Reaction Status Date / Time No Known Allergies Allergy Unverified 07/19/14 14:49 Home Medications Medication Instructions Recorded Confirmed Last Taken Type Losartan [Cozaar] 100 mg PO DAILY 07/19/14 08/11/19 03/19/19 09:00 History amLODIPine [Norvasc] 10 mg PO DAILY 07/19/14 08/11/19 03/19/19 09:00 History hydrALAZINE [Apresoline TAB] 50 mg PO BID #60 tablet 03/21/19 08/11/19 Unknown Rx Aspirin 325 mg PO QDAY #30 tablet 08/07/19 08/11/19 Unknown Rx Active Meds: Active Medications Acetaminophen (Tylenol) 650 mg PO Q4H PRN PRN Reason: Pain MILD(1-3)/Fever >100.5/MIR Last Admin: 08/11/19 20:02 Dose: 650 mg Documented by: Albuterol (Proventil) 2.5 mg IH Q4HRT PRN PRN Reason: Shortness Of Breath Amlodipine Besylate (Norvasc) 10 mg PO DAILY MICHELLE Aspirin (Aspirin) 325 mg PO QDAY MICHELLE Hydralazine HCl (Apresoline) 50 mg PO BID MICHELLE Sodium Chloride (Nacl 0.9% 1000 Ml) 1,000 mls @ 125 mls/hr IV ONCE ONE Stop: 08/12/19 00:25 Last Admin: 08/11/19 17:27 Dose: 125 mls/hr Documented by: Ceftriaxone Sodium (Rocephin/Ns 1 Gm/50 Ml) 1 gm in 50 mls @ 100 mls/hr IV Q24HR MICHELLE; Protocol Sodium Chloride (Nacl 0.9% 1000 Ml) 1,000 mls @ 75 mls/hr IV DIRECT MICHELLE Losartan Potassium (Cozaar) 100 mg PO DAILY MICHELLE Ondansetron HCl (Zofran) 4 mg IV Q8H PRN PRN Reason: Nausea And Vomiting Last Admin: 08/11/19 20:03 Dose: 4 mg Documented by: Sodium Chloride (Sodium Chloride Flush Syringe 10 Ml) 10 ml IV BID MICHELLE Sodium Chloride (Sodium Chloride Flush Syringe 10 Ml) 10 ml IV PRN PRN PRN Reason: LINE FLUSH Review of Systems Constitutional: anorexia, fatigue, weakness, poor appetite, no weight loss, no weight gain, no fever Breasts: deferred Cardiovascular: high blood pressure, no chest pain, no orthopnea, no edema, no syncope, no lightheadedness, no shortness of breath, no dyspnea on exertion, no leg edema Respiratory: no cough, no hemoptysis, no shortness of breath, no dyspnea on exertion, no home oxygen Gastrointestinal: nausea, vomiting, diarrhea, no abdominal pain, no melena Genitourinary Female: no dysuria, no hematuria Rectal: no bleeding Musculoskeletal: no muscle cramps Integumentary: no rash, no pruritis, no wounds Neurological: weakness, no paralysis, no change in speech, no change in mentation, no confusion, no memory loss, no changes in smell/taste Exam - Vital Signs Vital signs: Vital Signs Temp Pulse Resp BP Pulse Ox 97.6 F 96 H 22 110/78 99 08/11/19 14:17 08/11/19 14:17 08/11/19 14:17 08/11/19 14:17 08/11/19 14:17 - General Appearance General appearance: well-developed, well-nourished, appears stated age, other (no distress) EENT: ATNC, PERRL, mucous membranes dry, hearing intact, vision intact Neck: Present: neck supple, trachea midline Respiratory: Clear to Ascultation Heart: regular, S1S2, no murmurs Gastrointestinal: Present: normoactive bowel sounds. Absent: tenderness, distended Integumentary: no rash, warm and dry Neurologic: no focal deficit, no asterixis, alert and oriented x3 Musculoskeletal: Present: other (no edema) Results - Lab Results 08/11/19 15:13 08/12/19 13:01 Most recent lab results Calcium 9.8 mg/dL (8.4-10.2) 08/11/19 15:13 - Image Kidney/bladder ultrasound: other Assessment and Plan 1. Acute kidney injury: Likely vasomotor GRICEL in the setting of volume depletion. CT abdomen was negative for hydronephrosis. Continue IV fluids. Encouraged PO fluids. Monitor renal function. Avoid nephrotoxic agents. Meds dosage based on GFR. 2. FEN: Hypokalemia, replete K. Metabolic acidosis, continue IV fluids. Monitor lytes. 3. N & V. 4. Paroxysmal A.fib. 5. Hypertension: BP is controlled.
[2019-08-11] MEDS ORDERED: NON-FORMULARY (Hydralazine Hcl [Apresoline Tab] 50 MG) PO SCH (22:00)
[2019-08-12] MEDS: NACL 0.9% 1000 ML 1,000 ML IV SCH ×3 (01:01→19:38)
[2019-08-12] MEDS: APRESOLINE PO SCH ×2 (01:02→09:56)
[2019-08-12] MEDS: SODIUM CHLORIDE FLUSH SYRINGE 10 ML IV SCH ×3 (01:03→22:35)
[2019-08-12] MEDS ORDERED: K-DUR PO ONE ×4 (07:00→13:51)
[2019-08-12 08:23] LABS: Bilirubin,Urine NEG (Negative); Blood,Urine NEG (Negative); Color,Urine Yellow (Yellow); Mucus,Urine FEW /HPF
--- NOTE | 2019-08-12 09:32 | Ultrasound Report ---
ULTRASOUND RENAL INDICATION / CLINICAL INFORMATION: Acute renal insufficiency, acute kidney injury. COMPARISON: Noncontrast CT abdomen and pelvis dated 08/11/2019. FINDINGS: RIGHT KIDNEY: Length = 10.2 cm. [normal > 9 cm] - Parenchymal Thickness = 1.4 cm. [normal > 1.5 cm] - Echogenicity: Normal. - Hydronephrosis: None. - Cyst or mass: No significant abnormality. - Stones: None seen. LEFT KIDNEY: Length = 9.8 cm. [normal > 9 cm] - Parenchymal Thickness = 1.0 cm. [normal > 1.5 cm] - Echogenicity: Normal. - Hydronephrosis: None. - Cyst or mass: No significant abnormality. - Stones: 3 mm stone at the inferior pole URINARY BLADDER: No significant abnormality. FREE FLUID: None. ADDITIONAL FINDINGS: None. IMPRESSION: Small left renal stone without obstruction. Otherwise, unremarkable renal ultrasound. Signer Name: Yosi Ken Jr, MD Signed: 08/12/2019 9:28 AM Workstation Name: [id number]
[2019-08-12] MEDS: ROCEPHIN/NS 1 GM/50 ML 1 GM/50 ML BAG IV SCH (09:50)
[2019-08-12] MEDS ORDERED: ASPIRIN PO SCH (10:00)
[2019-08-12] MEDS ORDERED: COZAAR PO SCH (10:00)
[2019-08-12] MEDS ORDERED: NORVASC PO SCH (10:00)
--- NOTE | 2019-08-12 10:28 | Progress Note ---
Assessment and Plan Assessment and plan: 73 YO Female with HTN, OA, Nephrolithiasis, Obesity, Paroxysmal Atrial Fib with RVR not taking anticoagulation, Debility, Sick Sinus Syndrome presents to ED for evaluation for progressive weakness, multiple episodes of nausea, and decreased oral intake over the past 4 days, since being discharged from [facility], with progressively worsening symptoms over the same time frame. Family denies any syncopal episode, no focal weakness or slurred speech. * During her recent admission to the hospital she declined pacemaker, at the time stress test was done and was negative. * Since this admission she has been experiencing increased HR going to the 200s with exertion SIRS without organ dysfunction GastroEnteritis with Nausea and poor PO intake Paroxysmal Atrial fibrillation VS SICK SINUS SYNDROM Leukocoytosis ?Reactive Metabolic Acidosis- Resolved GRICEL Secondary to vasomotor Nephropathy No clincal evidence of Acute Cystitis Advance care planning Hypokalemia Nephrolithasis,-Right Plan Continue supportive care Continue anti-emetics Decrease norvasc to 5mg start Lopressor 25mg PO BID for better rate control Monitor renal function, Nephrology consulted Obtain Manufacturer Agent consult Discussed with Cardiology +30 minutes: discussed code status, end of life care, dementia progression, inpatient care plan. DVT prophylaxis Plan discussed with cardiology, Nursing and Patient. History Interval history: Patient seen and examined, reports that she is ready to go, although noted to have increased HR with activity Hospitalist Physical - Physical exam Narrative exam: Gen: WDWN, NAD, Awake, Alert, Orientated, lying in BED HEENT: NCAT, EOMI, PERRL, OP Clear Neck: supple, no adenopathy, no thyromegaly, no JVD CVS/Heart: irregular irregular, normal S1S2, pulses present bilaterally Chest/Lungs: CTA B, Symmetrical chest expansion, good air entry bilaterally GI/Abdomen: soft, NTND, good bowel sounds, no guarding or rebound /Bladder: no suprapubic tenderness, no CVA or paraspinal tenderness Extermity/Skin: no c/c/e, no obvious rash MSK: FROM x 4 Neuro: CN 2-12 grossly intact, no new focal deficits Psych: calm - Constitutional Vitals: Temp Pulse Resp BP Pulse Ox 98.0 F 85 20 130/55 97 08/12/19 07:16 08/12/19 09:56 08/12/19 07:16 08/12/19 09:56 08/12/19 08:04 General appearance: Present: mild distress, obese Results - Labs CBC & Chem 7: 08/11/19 15:13 08/12/19 07:17 Labs: Laboratory Last Values WBC 18.7 K/mm3 (4.5-11.0) H 08/11/19 15:13 RBC 4.95 M/mm3 (3.65-5.03) 08/11/19 15:13 Hgb 15.5 gm/dl (10.1-14.3) H 08/11/19 15:13 Hct 46.2 % (30.3-42.9) H 08/11/19 15:13 MCV 93 fl (79-97) 08/11/19 15:13 MCH 31 pg (28-32) 08/11/19 15:13 MCHC 34 % (30-34) 08/11/19 15:13 RDW 14.5 % (13.2-15.2) 08/11/19 15:13 Plt Count 276 K/mm3 (140-440) 08/11/19 15:13 Sodium 146 mmol/L (137-145) H 08/12/19 04:12 Potassium 3.1 mmol/L (3.6-5.0) L 08/12/19 07:17 Chloride 108.9 mmol/L (98-107) H 08/12/19 04:12 Carbon Dioxide 22 mmol/L (22-30) 08/12/19 04:12 Anion Gap 18 mmol/L 08/12/19 04:12 BUN 49 mg/dL (7-17) H 08/12/19 04:12 Creatinine 2.1 mg/dL (0.7-1.2) H 08/12/19 04:12 Estimated GFR 28 ml/min 08/12/19 04:12 BUN/Creatinine Ratio 23 % 08/12/19 04:12 Glucose 103 mg/dL (65-100) H 08/12/19 04:12 Lactic Acid 1.70 mmol/L (0.7-2.0) 08/11/19 16:37 Calcium 9.0 mg/dL (8.4-10.2) 08/12/19 04:12 Phosphorus 3.00 mg/dL (2.5-4.5) 08/12/19 04:12 Magnesium 2.10 mg/dL (1.7-2.3) 08/12/19 04:12 Total Bilirubin 1.50 mg/dL (0.1-1.2) H 08/11/19 15:13 Direct Bilirubin 0.5 mg/dL (0-0.2) H 08/11/19 15:13 Indirect Bilirubin 1.0 mg/dL 08/11/19 15:13 AST 20 units/L (5-40) 08/11/19 15:13 ALT 20 units/L (7-56) 08/11/19 15:13 Alkaline Phosphatase 73 units/L (35-129) 08/11/19 15:13 Total Creatine Kinase 138 units/L (30-135) H 08/11/19 15:13 Troponin T 0.023 ng/mL (0.00-0.029) 08/11/19 15:13 Total Protein 7.1 g/dL (6.3-8.2) 08/11/19 15:13 Albumin 3.7 g/dL (3.9-5) L 08/11/19 15:13 Albumin/Globulin Ratio 1.1 % 08/11/19 15:13 Lipase 21 units/L (13-60) 08/11/19 15:13 Urine Color Yellow (Yellow) 08/12/19 Unknown Urine Turbidity Clear (Clear) 08/12/19 Unknown Urine pH 6.0 (5.0-7.0) 08/12/19 Unknown Ur Specific [place] 1.023 (1.003-1.030) 08/12/19 Unknown Urine Protein 30 mg/dl mg/dL (Negative) 08/12/19 Unknown Urine Glucose (UA) Neg mg/dL (Negative) 08/12/19 Unknown Urine Ketones 20 mg/dL (Negative) 08/12/19 Unknown Urine Blood Neg (Negative) 08/12/19 Unknown Urine Nitrite Neg (Negative) 08/12/19 Unknown Urine Bilirubin Neg (Negative) 08/12/19 Unknown Urine Urobilinogen 2.0 mg/dL (<2.0) 08/12/19 Unknown Ur Leukocyte Esterase Neg (Negative) 08/12/19 Unknown Urine WBC (Auto) 4.0 /HPF (0.0-6.0) 08/12/19 Unknown Urine RBC (Auto) 1.0 /HPF (0.0-6.0) 08/12/19 Unknown U Epithel Cells (Auto) 6.0 /HPF (0-13.0) 08/12/19 Unknown Urine Mucus Few /HPF 08/12/19 Unknown Active Medications - Current Medications Current Medications: Generic Name Dose Route Start Last Admin Trade Name Freq PRN Reason Stop Dose Admin Acetaminophen 650 mg 08/11/19 16:34 08/11/19 20:02 Tylenol PO 650 mg Q4H PRN Administration Pain MILD(1-3)/Fever >100.5/MIR Albuterol 2.5 mg 08/11/19 16:34 Proventil IH Q4HRT PRN Shortness Of Breath Amlodipine Besylate 10 mg 08/12/19 10:00 08/12/19 09:57 Norvasc PO Not Given DAILY MICHELLE Aspirin 325 mg 08/12/19 10:00 08/12/19 09:56 Aspirin PO 325 mg QDAY MICHELLE Administration Carvedilol 3.125 mg 08/12/19 11:00 Coreg PO BID MICHELLE Hydralazine HCl 50 mg 08/11/19 22:00 08/12/19 09:56 Apresoline PO 50 mg BID MICHELLE Administration Ceftriaxone Sodium 1 gm in 50 mls @ 100 mls/hr 08/12/19 10:00 08/12/19 09:50 Rocephin/Ns 1 Gm/50 Ml IV 100 mls/hr Q24HR MICHELLE Administration Protocol Sodium Chloride 1,000 mls @ 75 mls/hr 08/11/19 17:00 08/12/19 09:52 Nacl 0.9% 1000 Ml IV 75 mls/hr DIRECT MICHELLE Administration Losartan Potassium 100 mg 08/12/19 10:00 08/12/19 09:59 Cozaar PO Not Given DAILY MICHELLE Ondansetron HCl 4 mg 08/11/19 16:34 08/11/19 20:03 Zofran IV 4 mg Q8H PRN Administration Nausea And Vomiting Sodium Chloride 10 ml 08/11/19 22:00 08/12/19 10:14 Sodium Chloride Flush Syringe 10 Ml IV 10 ml BID MICHELLE Administration Sodium Chloride 10 ml 08/11/19 16:34 Sodium Chloride Flush Syringe 10 Ml IV PRN PRN LINE FLUSH
[2019-08-12 10:55] LABS: Creatinine,Urine 207.2 mg/dL (0.1-20.0)
--- NOTE | 2019-08-12 10:58 | Consultation ---
History of Present Illness Consult date: 08/12/19 Requesting physician: EDUARDO FOFANA Consult reason: other (weakness, sss) History of present illness: The pt is a 73 YO female with a past medical history of paroxysmal atrial fibrillation, intermittent 2:1 AV block, tachy-chelsea syndrome, HTN. She was recently seen in consultation by our practice during a brief hospitalization last weekend - at that time, she was found to have newly diagnosed PAFib, 2:1 AV block, sinus bradycardia and tachy-chelsea syndrome, her home clonidine was d/c'd and bradycardia improved, she adamantly refuses pacemaker. She presented yesterday with c/o weakness, nausea and vomiting for the past 4 days since being discharged from [facility] on 08/07/2019. She denies any chest pain, palpitations, n/v, diaphoresis, dizziness or syncope. During her last hospitalization, underwent Lexiscan stress test with nuclear imaging which revealed normal myocardial perfusion with stress and rest imaging. Echo done 08/15/2019 showed EF 55-60%, trace MR, trace TR, impaired relaxation. Since admission, she is noted to be in SR with brief runs of paroxysmal atrial flutter 2:1 conduction with HR reaching 200s, particularly with activity. No bradycardia or AVB noted. Past History Past Medical History: hypertension, other (see hpi) Past Surgical History: cholecystectomy, hysterectomy Social history: single. denies: smoking, alcohol abuse, prescription drug abuse Family history: hypertension Medications and Allergies Allergies Allergy/AdvReac Type Severity Reaction Status Date / Time No Known Allergies Allergy Unverified 07/19/14 14:49 Home Medications Medication Instructions Recorded Confirmed Last Taken Type Losartan [Cozaar] 100 mg PO DAILY 07/19/14 08/11/19 03/19/19 09:00 History amLODIPine [Norvasc] 10 mg PO DAILY 07/19/14 08/11/19 03/19/19 09:00 History hydrALAZINE [Apresoline TAB] 50 mg PO BID #60 tablet 03/21/19 08/11/19 Unknown Rx Aspirin 325 mg PO QDAY #30 tablet 08/07/19 08/11/19 Unknown Rx Active Meds: Active Medications Acetaminophen (Tylenol) 650 mg PO Q4H PRN PRN Reason: Pain MILD(1-3)/Fever >100.5/MIR Last Admin: 08/11/19 20:02 Dose: 650 mg Documented by: Albuterol (Proventil) 2.5 mg IH Q4HRT PRN PRN Reason: Shortness Of Breath Amlodipine Besylate (Norvasc) 5 mg PO DAILY [facility] Aspirin (Aspirin) 325 mg PO QDAY [facility] Last Admin: 08/12/19 09:56 Dose: 325 mg Documented by: Hydralazine HCl (Apresoline) 50 mg PO BID [facility] Last Admin: 08/12/19 09:56 Dose: 50 mg Documented by: Ceftriaxone Sodium (Rocephin/Ns 1 Gm/50 Ml) 1 gm in 50 mls @ 100 mls/hr IV Q24HR [facility]; Protocol Last Admin: 08/12/19 09:50 Dose: 100 mls/hr Documented by: Sodium Chloride (Nacl 0.9% 1000 Ml) 1,000 mls @ 75 mls/hr IV DIRECT [facility] Last Admin: 08/12/19 09:52 Dose: 75 mls/hr Documented by: Losartan Potassium (Cozaar) 100 mg PO DAILY [facility] Last Admin: 08/12/19 09:59 Dose: Not Given Documented by: Metoprolol Tartrate (Lopressor) 25 mg PO BID [facility] Ondansetron HCl (Zofran) 4 mg IV Q8H PRN PRN Reason: Nausea And Vomiting Last Admin: 08/11/19 20:03 Dose: 4 mg Documented by: Sodium Chloride (Sodium Chloride Flush Syringe 10 Ml) 10 ml IV BID [facility] Last Admin: 08/12/19 10:14 Dose: 10 ml Documented by: Sodium Chloride (Sodium Chloride Flush Syringe 10 Ml) 10 ml IV PRN PRN PRN Reason: LINE FLUSH Review of Systems Constitutional: weakness (generalized), no weight loss, no weight gain, no fever, no chills, no sweats Ears, nose, mouth and throat: no ear pain, no nose pain, no sinus pressure, no sinus pain Cardiovascular: no chest pain, no orthopnea, no palpitations, no rapid/irregular heart beat, no edema, no syncope, no lightheadedness, no shortness of breath, no dyspnea on exertion, no paroxysmal nocturnal dyspnea, no leg edema, no decreased exercise tolerance Respiratory: no cough, no shortness of breath, no dyspnea on exertion, no congestion, no wheezing, no pain on inspiration Gastrointestinal: abdominal pain, nausea, vomiting, no diarrhea, no constipation, no change in bowel habits, no hematemesis, no coffee ground emesis, no BRBPR, no melena Genitourinary Female: no pelvic pain, no flank pain, no dysuria, no urinary frequency, no urgency Musculoskeletal: no neck stiffness, no neck pain Integumentary: no rash, no pruritis, no redness, no sores, no wounds Neurological: no head injury, no paralysis, no parathesias, no numbness, no tingling, no seizures Psychiatric: no anxiety Endocrine: no cold intolerance, no heat intolerance Hematologic/Lymphatic: no easy bruising, no easy bleeding Allergic/Immunologic: no urticaria, no wheezing Physical Examination Vital Signs Temp Pulse Resp BP Pulse Ox 97.6 F 96 H 22 110/78 99 08/11/19 14:17 08/11/19 14:17 08/11/19 14:17 08/11/19 14:17 08/11/19 14:17 General appearance: no acute distress HEENT: Positive: PERRL, Normocephaly, Mucus Membranes Moist Neck: Positive: neck supple, trachea midline Cardiac: Positive: Reg Rate and Rhythm, S1/S2 Lungs: Positive: Decreased Breath Sounds Neuro: Positive: Grossly Intact Abdomen: Negative: Tender Skin: Negative: Rash Musculoskeletal: No Pain Extremities: Absent: edema Results 08/11/19 15:13 08/12/19 07:17 Cardiac Enzymes 08/11/19 Range/Units 15:13 AST 20 (5-40) units/L CBC 08/11/19 Range/Units 15:13 WBC 18.7 H (4.5-11.0) K/mm3 RBC 4.95 (3.65-5.03) M/mm3 Hgb 15.5 H (10.1-14.3) gm/dl Hct 46.2 H (30.3-42.9) % Plt Count 276 (140-440) K/mm3 Comprehensive Metabolic Panel 08/11/19 08/12/19 08/12/19 Range/Units 15:13 04:12 07:17 Sodium 144 146 H (137-145) mmol/L Potassium 3.3 L 2.7 L* 3.1 L (3.6-5.0) mmol/L Chloride 105.1 108.9 H (98-107) mmol/L Carbon Dioxide 17 L 22 (22-30) mmol/L BUN 51 H 49 H (7-17) mg/dL Creatinine 2.5 H 2.1 H (0.7-1.2) mg/dL Glucose 155 H 103 H (65-100) mg/dL Calcium 9.8 9.0 (8.4-10.2) mg/dL Direct Bilirubin 0.5 H (0-0.2) mg/dL Indirect Bilirubin 1.0 mg/dL AST 20 (5-40) units/L ALT 20 (7-56) units/L Alkaline Phosphatase 73 (35-129) units/L Total Protein 7.1 (6.3-8.2) g/dL Albumin 3.7 L (3.9-5) g/dL - Imaging and Cardiology Echo: report reviewed (08/15/2019 showed EF 55-60%, trace MR, trace TR, impaired relaxation. ) EKG: report reviewed, image reviewed EKG interpretations - Telemetry EKG Rhythm: Sinus Rhythm - EKG Sinus rhythms and dysrhythmias: sinus rhythm Assessment and Plan On a recent admission, pt was found to have newly diagnosed PAFib, 2:1 AV block, sinus bradycardia and tachy-chelsea syndrome. Since this admission, she is noted to be in SR with brief runs of paroxysmal atrial flutter 2:1 conduction with HR reaching 200s, particularly with activity. No bradycardia or AVB noted. Lexiscan MPI stress test done 08/06/2019 was negative. Echo done 08/15/2019 showed EF 55-60%, trace MR, trace TR, impaired relaxation. Optimize HR - initiate lopressor and titrate as necessary, monitor closely on telemetry. Cont home amlodipine 5mg daily, d/c losartan in setting of ARF and d/c hydralazine in setting of tachycardia. Pt continues do adamantly refuse PPM if it were to become indicated in the future. Pt would benefit from systemic AC in regards to paroxysmal AFib/AFlutter. Indications, potential risks and benefits of snf OAC reviewed with pt and she is agreeable. Initiate Eliquis 5mg BID. Management of ARF per nephrology. Monitor renal indices. Replete electrolytes PRN. The patient has been seen in conjunction with Dr. Sullivan who agrees with the assessment and plan of care. - Patient Problems (1) Paroxysmal atrial fibrillation with RVR Current Visit: Yes Status: Acute (2) Paroxysmal atrial flutter Current Visit: Yes Status: Acute (3) AV block Current Visit: Yes Status: Acute (4) Tachycardia-bradycardia syndrome Current Visit: Yes Status: Chronic (5) Nausea and vomiting Current Visit: Yes Status: Acute (6) Acute renal failure Current Visit: Yes Status: Acute (7) Hypokalemia Current Visit: No Status: Acute (8) HTN (hypertension) Current Visit: Yes Status: Chronic Qualifiers: Hypertension type: essential hypertension Qualified Code(s): I10 - Essential (primary) hypertension
[2019-08-12] MEDS ORDERED: COREG PO SCH (11:00)
[2019-08-12] MEDS: LOPRESSOR PO SCH ×2 (12:00→22:39)
[2019-08-12] MEDS: NORVASC PO SCH (12:02)
[2019-08-12] MEDS: ZOFRAN IV PRN ×2 (18:13→19:32)
--- NOTE | 2019-08-12 19:13 | Progress Note ---
Assessment and Plan 1. Acute kidney injury: Likely vasomotor GRICEL in the setting of volume depletion. CT abdomen was negative for hydronephrosis. Continue IV fluids. Renal function is improving. Encouraged PO fluids. Monitor renal function. Avoid nephrotoxic agents. Meds dosage based on GFR. 2. FEN: Hypokalemia, replete K. Metabolic acidosis, continue IV fluids. Monitor lytes. 3. N & V: Improved. 4. Paroxysmal A.fib. 5. Hypertension: BP is controlled. Examination: General appearance: well-developed, well-nourished, appears stated age, no distress HEENT: ATNC, WALLY, mucous membranes dry, hearing intact, vision intact Neck: neck supple, trachea midline Respiratory: Clear to Auscultation Heart: regular, S1S2, no murmur Gastrointestinal: normoactive bowel sounds, not tenderness, not distended Integumentary: no rash, warm and dry Neurologic: no focal deficit, no asterixis, alert and oriented x3 Musculoskeletal: no deformity Ext: No edema Subjective Date of service: 08/12/19 Interval history: Patient was seen and examined at the bedside. Feeling better today. Objective - Vital Signs Vital signs: Vital Signs - 12hr 08/12/19 08/12/19 08/12/19 07:16 08:04 09:56 Temperature 98.0 F Pulse Rate 77 85 Respiratory 20 Rate Blood Pressure 108/62 130/55 O2 Sat by Pulse 86 97 Oximetry 08/12/19 08/12/19 08/12/19 10:00 13:24 17:38 Temperature 98.2 F Pulse Rate 102 H 65 Respiratory 20 Rate Blood Pressure 100/58 O2 Sat by Pulse 94 94 Oximetry - Lab 08/11/19 15:13 08/12/19 13:01 Most recent lab results Calcium 9.0 mg/dL (8.4-10.2) 08/12/19 04:12 Phosphorus 3.00 mg/dL (2.5-4.5) 08/12/19 04:12 Magnesium 2.10 mg/dL (1.7-2.3) 08/12/19 04:12 Urine Creatinine 207.2 mg/dL (0.1-20.0) H 08/12/19 Unknown Urine Sodium 24 mmol/L 08/12/19 Unknown Medications & Allergies - Medications Allergies/Adverse Reactions: Allergies No Known Allergies Allergy (Unverified 07/19/14 14:49) Home Medications: Home Medications Medication Instructions Recorded Confirmed Last Taken Type Losartan [Cozaar] 100 mg PO DAILY 07/19/14 08/11/19 03/19/19 09:00 History amLODIPine [Norvasc] 10 mg PO DAILY 07/19/14 08/11/19 03/19/19 09:00 History hydrALAZINE [Apresoline TAB] 50 mg PO BID #60 tablet 03/21/19 08/11/19 Unknown Rx Aspirin 325 mg PO QDAY #30 tablet 08/07/19 08/11/19 Unknown Rx Active Medications: Generic Name Dose Route Start Last Admin Trade Name Freq PRN Reason Stop Dose Admin Acetaminophen 650 mg 08/11/19 16:34 08/11/19 20:02 Tylenol PO 650 mg Q4H PRN Administration Pain MILD(1-3)/Fever >100.5/MIR Albuterol 2.5 mg 08/11/19 16:34 Proventil IH Q4HRT PRN Shortness Of Breath Amlodipine Besylate 5 mg 08/12/19 11:00 08/12/19 12:02 Norvasc PO 5 mg DAILY MICHELLE Administration Apixaban 5 mg 08/12/19 22:00 Eliquis PO Q12HR MICHELLE Protocol Ceftriaxone Sodium 1 gm in 50 mls @ 100 mls/hr 08/12/19 10:00 08/12/19 09:50 Rocephin/Ns 1 Gm/50 Ml IV 100 mls/hr Q24HR MICHELLE Administration Protocol Sodium Chloride 1,000 mls @ 75 mls/hr 08/11/19 17:00 08/12/19 09:52 Nacl 0.9% 1000 Ml IV 75 mls/hr DIRECT MICHELLE Administration Metoprolol Tartrate 25 mg 08/12/19 11:00 08/12/19 12:00 Lopressor PO 25 mg BID MICHELLE Administration Ondansetron HCl 4 mg 08/11/19 16:34 08/12/19 18:13 Zofran IV 4 mg Q8H PRN Administration Nausea And Vomiting Sodium Chloride 10 ml 08/11/19 22:00 08/12/19 10:14 Sodium Chloride Flush Syringe 10 Ml IV 10 ml BID MICHELLE Administration Sodium Chloride 10 ml 08/11/19 16:34 Sodium Chloride Flush Syringe 10 Ml IV PRN PRN LINE FLUSH
[2019-08-12] MEDS: TYLENOL PO PRN (19:43)
[2019-08-13] MEDS: ELIQUIS PO SCH ×2 (01:39→09:08)
[2019-08-13 05:32] LABS: Hematocrit 39.1 % (30.3-42.9); Hemoglobin 12.6 gm/dl (10.1-14.3); Mean Corpuscular HGB Conc 32 % (30-34); Mean Corpuscular Volume 95 fl (79-97); Platelet Count 190 K/mm3 (140-440); Red Blood Count 4.11 M/mm3 (3.65-5.03); Red Cell Distribution Width 14.5 % (13.2-15.2)
[2019-08-13 05:51] LABS: Albumin 3.1 g/dL (3.9-5); Calcium 8.6 mg/dL (8.4-10.2)
[2019-08-13 08:12] VITALS: BP 123/72
[2019-08-13] MEDS ORDERED: K-DUR PO NR ×2 (08:23→10:53)
[2019-08-13] MEDS: LOPRESSOR PO SCH (09:09)
[2019-08-13] MEDS: SODIUM CHLORIDE FLUSH SYRINGE 10 ML IV SCH (09:10)
[2019-08-13] MEDS: ROCEPHIN/NS 1 GM/50 ML 1 GM/50 ML BAG IV SCH (09:10)
[2019-08-13] MEDS: NORVASC PO SCH (09:10)
--- NOTE | 2019-08-13 10:30 | Progress Note ---
Assessment and Plan Tach- chelsea syndrome- refusing pacemaker acute renal failure htn hypokalemia chol aflutter2:1 rec: Patient heart rate controlled with metoprolol 25 mg twice a day on oral anticoagulation on elquis. Patient has refused pacemaker discussed in detail about that for tachybradycardia syndrome patient will continue on anticoagulation replace potassium continue beta mihai for AV ludwin agent no more on clonidine BP control follow-up in cardiology in one week Subjective Date of service: 08/13/19 Principal diagnosis: aflutter Interval history: denies any palpations or chest pain Objective Vital Signs Temp Pulse Pulse Resp BP Pulse Ox 08/13/19 10:00 100 H 100 H 18 96 08/13/19 09:53 98 08/13/19 09:10 100 H 123/72 08/13/19 09:09 100 H 123/72 08/13/19 07:58 98.1 F 76 18 123/72 96 08/13/19 02:36 99.0 F 65 18 127/78 99 08/12/19 22:00 94 08/12/19 20:11 98 08/12/19 19:22 98.6 F 57 L 18 140/66 97 08/12/19 17:38 94 08/12/19 13:24 98.2 F 65 20 100/58 94 - Physical Examination General: No Apparent Distress HEENT: Positive: PERRL, Normocephaly, Mucus Membranes Moist Neck: Positive: neck supple, trachea midline Cardiac: Positive: Reg Rate and Rhythm Lungs: Positive: clear to auscultation Neuro: Positive: Grossly Intact Abdomen: Negative: Tender Skin: Negative: Rash Musculoskeletal: No Pain Extremities: Absent: edema - Labs and Meds Cardiac Enzymes 08/13/19 Range/Units 05:04 AST 17 (5-40) units/L CBC 08/13/19 Range/Units 05:04 WBC 13.5 H (4.5-11.0) K/mm3 RBC 4.11 (3.65-5.03) M/mm3 Hgb 12.6 (10.1-14.3) gm/dl Hct 39.1 D (30.3-42.9) % Plt Count 190 (140-440) K/mm3 Comprehensive Metabolic Panel 08/12/19 08/13/19 Range/Units 13:01 05:04 Sodium 139 (137-145) mmol/L Potassium 2.7 L* 3.2 L (3.6-5.0) mmol/L Chloride 107.6 H (98-107) mmol/L Carbon Dioxide 20 L (22-30) mmol/L BUN 23 H (7-17) mg/dL Creatinine 1.3 H (0.7-1.2) mg/dL Glucose 98 (65-100) mg/dL Calcium 8.6 (8.4-10.2) mg/dL AST 17 (5-40) units/L ALT 21 (7-56) units/L Alkaline Phosphatase 61 (35-129) units/L Total Protein 6.0 L (6.3-8.2) g/dL Albumin 3.1 L (3.9-5) g/dL - Imaging and Cardiology EKG: report reviewed, image reviewed Echo: report reviewed (08/15/2019 showed EF 55-60%, trace MR, trace TR, impaired relaxation. ) - Telemetry EKG Rhythm: Sinus Rhythm (no atrial flutter for 24 hours) - EKG Sinus rhythms and dysrhythmias: sinus rhythm
--- NOTE | 2019-08-13 10:52 | Discharge Summary ---
Providers - Providers Date of Admission: 08/11/19 16:34 Attending physician: KAEL RIZZO MD 08/11/19 16:39 Consult to Physician [CONS] Routine Comment: left mess. answ. machine/ felicia Consulting Provider: NIDIA FISHER Physician Instructions: Reason For Exam: GRICEL 08/11/19 18:27 Consult to Cardiology [CONS] Routine Consulting Provider: TORITO JOHNSON Reason For Exam: weakness/Sick Sinus Syndrome 08/12/19 08:30 Consult to Dietitian/Nutrition [CONS] Routine Physician Instructions: Reason For Exam: Reason for Consult: Poor oral intake Occupational Therapy Evaluate and Treat [CONS] Routine Comment: Reason For Exam: ATAXIA Physical Therapy Evaluation and Treat [CONS] Routine Comment: Reason For Exam: ATAXIA Primary care physician: MONY HORTON Hospitalization Reason for admission: aflutter Condition: Stable Hospital course: 73 YO Female with HTN, OA, Nephrolithiasis, Obesity, Paroxysmal Atrial Fib with RVR not taking anticoagulation, Debility, Sick Sinus Syndrome presents to ED for evaluation for progressive weakness, multiple episodes of nausea, and decreased oral intake over the past 4 days, since being discharged from [facility], with progressively worsening symptoms over the same time frame. Family denies any syncopal episode, no focal weakness or slurred speech. * During her recent admission to the hospital she declined pacemaker, at the time stress test was done and was negative. * Since this admission she has been experiencing increased HR going to the 200s with exertion * Patient seen by Nephrology, hydration stressed with the patient. Per cardiology and also discussed with patient Patient heart rate controlled with metoprolol 25 mg twice a day on oral anticoagulation on elquis. Patient has refused pacemaker discussed in detail about that for tachybradycardia syndrome patient will continue on anticoagulation replace potassium continue beta mihai for AV ludwin agent no mo re on clonidine BP control follow-up in cardiology in one week SIRS without organ dysfunction Tach- chelsea syndrome- refusing pacemaker htn hypokalemia chol aflutter2:1 GastroEnteritis with Nausea and poor PO intake Leukocoytosis -Reactive Metabolic Acidosis- Resolved GRICEL Secondary to vasomotor Nephropathy No clincal evidence of Acute Cystitis Advance care planning Hypokalemia Nephrolithasis,-Right Disposition: DC-01 TO HOME OR SELFCARE Time spent for discharge: 35 MINS Core Measure Documentation - Palliative Care Palliative Care/ Comfort Measures: Not Applicable - Core Measures Any of the following diagnoses?: none Exam - Physical Exam Narrative exam: Gen: WDWN, NAD, Awake, Alert, Orientated, lying in BED HEENT: NCAT, EOMI, PERRL, OP Clear Neck: supple, no adenopathy, no thyromegaly, no JVD CVS/Heart: irregular irregular, normal S1S2, pulses present bilaterally Chest/Lungs: CTA B, Symmetrical chest expansion, good air entry bilaterally GI/Abdomen: soft, NTND, good bowel sounds, no guarding or rebound /Bladder: no suprapubic tenderness, no CVA or paraspinal tenderness Extermity/Skin: no c/c/e, no obvious rash MSK: FROM x 4 Neuro: CN 2-12 grossly intact, no new focal deficits Psych: calm - Constitutional Vitals: Temp Pulse Resp BP Pulse Ox 98.1 F 100 H 18 123/72 96 08/13/19 07:58 08/13/19 10:00 08/13/19 10:00 08/13/19 09:10 08/13/19 10:00 Plan Activity: advance as tolerated, fall precautions Diet: low fat Special Instructions: record daily BP diary Care Plan Goals: Improve cardiac status and renal function Plan of Treatment: Follow with cardiology, Repeat bmp in 3-5 days prior to follow up Assessment: pLAN FOR FULL RECOVERY Follow up with: PRIMARY CAREMD [Referring] - 3-5 Days THERON ROJAS MD [Staff Physician] - 7 Days NIDIA FISHER MD [Staff Physician] - 7 Days Prescriptions: Aspirin [Aspirin BABY CHEW TAB] 81 mg PO QDAY #30 tab.chew Apixaban [Eliquis] 5 mg PO Q12HR #60 tablet Metoprolol [Lopressor TAB] 25 mg PO BID #60 tablet Amlodipine Besylate [Norvasc] 5 mg PO DAILY #30 tablet
--- NOTE | 2019-08-13 11:41 | Progress Note ---
Assessment and Plan 1. Acute kidney injury: Likely vasomotor GRICEL in the setting of volume depletion. CT abdomen was negative for hydronephrosis. Renal function is improving. Encouraged PO fluids. Monitor renal function. Avoid nephrotoxic agents. Meds dosage based on GFR. 2. FEN: Hypokalemia, replete K. Metabolic acidosis, improving. Monitor lytes. 3. N & V: Improved. 4. Paroxysmal A.fib. 5. Hypertension: BP is controlled. F/u with me in 2 weeks. Examination: General appearance: well-developed, well-nourished, appears stated age, no distress HEENT: ATNC, WALLY, hearing intact, vision intact Neck: neck supple, trachea midline Respiratory: Clear to Auscultation Heart: regular, S1S2, no murmur Gastrointestinal: normoactive bowel sounds, not tenderness, not distended Integumentary: no rash, warm and dry Neurologic: no focal deficit, no asterixis, alert and oriented x3 Musculoskeletal: no deformity Ext: No edema Subjective Date of service: 08/13/19 Principal diagnosis: aflutter Interval history: Patient was seen and examined at the bedside. Feeling better. Objective - Vital Signs Vital signs: Vital Signs - 12hr 08/13/19 08/13/19 08/13/19 02:36 07:58 09:09 Temperature 99.0 F 98.1 F Pulse Rate 65 76 100 H Pulse Rate [ From Monitor] Respiratory 18 18 Rate Blood Pressure 127/78 123/72 123/72 O2 Sat by Pulse 99 96 Oximetry 08/13/19 08/13/19 08/13/19 09:10 09:53 10:00 Temperature Pulse Rate 100 H 100 H Pulse Rate [ 100 H From Monitor] Respiratory 18 Rate Blood Pressure 123/72 O2 Sat by Pulse 98 96 Oximetry - Lab 08/13/19 05:04 08/13/19 05:04 Most recent lab results Calcium 8.6 mg/dL (8.4-10.2) 08/13/19 05:04 Phosphorus 3.00 mg/dL (2.5-4.5) 08/12/19 04:12 Magnesium 2.10 mg/dL (1.7-2.3) 08/12/19 04:12 Urine Creatinine 207.2 mg/dL (0.1-20.0) H 08/12/19 Unknown Urine Sodium 24 mmol/L 08/12/19 Unknown Medications & Allergies - Medications Allergies/Adverse Reactions: Allergies No Known Allergies Allergy (Unverified 07/19/14 14:49) Home Medications: Home Medications Medication Instructions Recorded Confirmed Last Taken Type Amlodipine Besylate [Norvasc] 5 mg PO DAILY #30 tablet 08/13/19 Unknown Rx Apixaban [Eliquis] 5 mg PO Q12HR #60 tablet 08/13/19 Unknown Rx Aspirin [Aspirin BABY CHEW TAB] 81 mg PO QDAY #30 tab.chew 08/13/19 Unknown Rx Metoprolol [Lopressor TAB] 25 mg PO BID #60 tablet 08/13/19 Unknown Rx Active Medications: Generic Name Dose Route Start Last Admin Trade Name Freq PRN Reason Stop Dose Admin Acetaminophen 650 mg 08/11/19 16:34 08/12/19 19:43 Tylenol PO 650 mg Q4H PRN Administration Pain MILD(1-3)/Fever >100.5/MIR Albuterol 2.5 mg 08/11/19 16:34 Proventil IH Q4HRT PRN Shortness Of Breath Amlodipine Besylate 5 mg 08/12/19 11:00 08/13/19 09:10 Norvasc PO 5 mg DAILY MICHELLE Administration Apixaban 5 mg 08/12/19 22:00 08/13/19 09:08 Eliquis PO 5 mg Q12HR MICHELLE Administration Protocol Ceftriaxone Sodium 1 gm in 50 mls @ 100 mls/hr 08/12/19 10:00 08/13/19 09:10 Rocephin/Ns 1 Gm/50 Ml IV 100 mls/hr Q24HR MICHELLE Administration Protocol Sodium Chloride 1,000 mls @ 75 mls/hr 08/11/19 17:00 08/12/19 19:38 Nacl 0.9% 1000 Ml IV 75 mls/hr DIRECT MICHELLE Administration Metoprolol Tartrate 25 mg 08/12/19 11:00 08/13/19 09:09 Lopressor PO 25 mg BID MICHELLE Administration Ondansetron HCl 4 mg 08/11/19 16:34 08/12/19 19:32 Zofran IV 4 mg Q8H PRN Administration Nausea And Vomiting Potassium Chloride 40 meq 08/13/19 10:53 K-Dur PO 08/13/19 16:00 ONCE NR Sodium Chloride 10 ml 08/11/19 22:00 08/13/19 09:10 Sodium Chloride Flush Syringe 10 Ml IV 10 ml BID MICHELLE Administration Sodium Chloride 10 ml 08/11/19 16:34 Sodium Chloride Flush Syringe 10 Ml IV PRN PRN LINE FLUSH
== END 2019-08-13 14:15 | disposition home health service (06) | DRG 391 ==
LOC: ED 14:04 → 2B-ACE 16:34
PROVIDERS: ADMIT Internal Medicine; ATTEND Internal Medicine
DX: K52.9 Noninfective gastroenteritis and colitis, unspecified (principal); N17.0 Acute kidney failure with tubular necrosis; R65.10 Systemic inflammatory response syndrome (SIRS) of non-infectious origin without acute organ dysfunction; N39.0 Urinary tract infection, site not specified; I48.92 Unspecified atrial flutter; E87.2 Acidosis; E87.6 Hypokalemia; I49.5 Sick sinus syndrome; Z96.649 Presence of unspecified artificial hip joint; E66.9 Obesity, unspecified; N20.0 Calculus of kidney; E78.00 Pure hypercholesterolemia, unspecified; I48.0 Paroxysmal atrial fibrillation; Z79.82 Long term (current) use of aspirin; Z87.442 Personal history of urinary calculi; Z90.710 Acquired absence of both cervix and uterus; Z90.49 Acquired absence of other specified parts of digestive tract; Z68.32 Body mass index [BMI] 32.0-32.9, adult; Z82.49 Family history of ischemic heart disease and other diseases of the circulatory system
CPT/HCPCS: 36415; 71045; 74176; 76770; 80048; 80053; 80076; 81001; 82140; 82550; 82570; 83690; 83735; 84100; 84132; 84300; 84484; 85027; 87040; 93005; 93010; 96361; 96374; 96375; G0378; J0696; J2060; J2405; J7030; J7040